=== PATIENT | male | born 1950 | race African-American/Black ===

== ENCOUNTER 2018-01-04 16:07 | Inpatient (IN) | payer OTHER ==
[2018-01-04] MEDS ORDERED: SODIUM CHLORIDE 0.9% 1000 ML INFUS.BAG IV STA (16:18)
--- NOTE | 2018-01-04 16:23 | PDOC ---
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 Patient arrives from Urgent care with findings of BL infiltrates on CXR, and SOB. Patient reports progressive, worsening shortness of breath, and Victoria x 2 weeks, with stable non productive cough within past week. Also endorses decreased appetite and possible weight loss. No home O2 requirements, or home duoneb therapy. Does not recall HIV status. States that all his HIV medications were stopped years ago for unknown reason. Does not recall CD4 count. Denies h/o TB. Patient denies night sweats, orthopnea, PND, leg pain/swelling, palpitations, N/ V, F,C, CP, urinary complaints, abdominal pain, diarrhea, constipation, BPR, lightheadedness, weakness, sensory changes. PMHx: as noted above. Denies h/o PE/DVT, PNA, ICU admission, ROS: as noted SHx: Denies h/o tobacco use, or IVDA. Social Etoh. No recent sick contacts or travels. PMD: None Past History - Past Medical History Allergies/Adverse Reactions: Allergies Allergy/AdvReac Type Severity Reaction Status Date / Time aspirin Allergy Verified 01/04/18 16:08 Sulfa (Sulfonamide Allergy Verified 01/04/18 16:08 Antibiotics) ANTI MALARIA Allergy Uncoded 01/04/18 16:08 Home Medications: Ambulatory Orders NK [No Known Home Medication] 05/20/15 COPD: No DVT: No Dementia: No - Surgical History Abdominal Surgery: Yes (hernia) - Suicide/Smoking/Psychosocial Hx Smoking History: Never smoked Have you smoked in the past 12 months: No Hx Alcohol Use: Yes Drug/Substance Use Hx: Yes Substance Use Type: Alcohol, Marijuana Review of Systems - Review of Systems Comments:: 01/04/18 16:22 GENERAL/CONSTITUTIONAL: No fever or chills. No weakness. HEAD, EYES, EARS, NOSE AND THROAT: No change in vision. No ear pain or discharge. No sore throat. CARDIOVASCULAR: + SOB and cough. No chest pain. RESPIRATORY: wheezing, or hemoptysis. GASTROINTESTINAL: No nausea, vomiting, diarrhea or constipation. GENITOURINARY: No dysuria, frequency, or change in urination. MUSCULOSKELETAL: No joint or muscle swelling or pain. No neck or back pain. SKIN: No rash NEUROLOGIC: No headache, vertigo, loss of consciousness, or change in strength/ sensation. ENDOCRINE: No increased thirst. No abnormal weight change HEMATOLOGIC/LYMPHATIC: No anemia, easy bleeding, or history of blood clots. ALLERGIC/IMMUNOLOGIC: No hives or skin allergy. *Physical Exam - Vital Signs Last Vital Signs Temp Pulse Resp BP Pulse Ox 98.1 F 121 H 24 H 144/97 82 L 01/04/18 16:08 01/04/18 16:08 01/04/18 16:08 01/04/18 16:08 01/04/18 16:08 - Physical Exam Comments: 01/04/18 16:22 GENERAL:Patient appears thin/malnourished. Awake, alert, and fully oriented, in no acute distress HEAD: No signs of trauma, normocephalic, atraumatic EYES: PERRLA, EOMI, sclera anicteric, conjunctiva clear ENT: Hearing grossly normal, nares patent, oropharynx clear without exudates. Moist mucosa NECK: Normal ROM, supple, no lymphadenopathy, JVD, or masses LUNGS: +Diminished lung sounds BL. No distress, speaks full sentences. Absent rales or rhonci. HEART: Regular rate and rhythm, normal S1 and S2, no murmurs, rubs or gallops, peripheral pulses normal and equal bilaterally. EXTREMITIES : Normal inspection, Normal range of motion, no edema. No clubbing or cyanosis. NEUROLOGICAL: Cranial nerves II through XII grossly intact. Normal speech, normal gait, no focal sensorimotor deficits SKIN: Warm, Dry, normal turgor, no rashes or lesions noted Heart Score/ECG Review - History History: Slightly suspicious - Electrocardiogram EKG: Non specific repolarization disturbance - Age Age: >/= 65 - Risk Factors Based on the list above the patient has:: No risk factors known - Troponin Troponin: </= normal limit - Score Heart Score - Total: 3 ED Treatment Course - LABORATORY CBC & Chemistry Diagram: 01/04/18 16:21 01/04/18 16:21 - RADIOLOGY Radiology Studies Ordered: Category Date Time Status CHEST X-RAY PORTABLE* [RAD] Stat Radiology 01/04/18 16:18 Ordered Medical Decision Making - Medical Decision Making 01/04/18 17:01 67 yo M with h/o G6PD, and unclear h/o HIV who p/w SOB. 2/4 SIRS criteria, HR 121, R 24, O2 82 % RA. AF. Possibility of immunocompromised status and opportunistic infections. Will assess for PNA, TB, HIV status. PERC + PE, but low risk based on weils criteria. ACS/CO r/o. Will also consider asthma, COPD, CHF. ED Course : CBC,CMP, Cardiac Pr. LA, LDH, VBG, ABG, Blood cx. Sputum Cx. Urine Cx. EKG, CXR Zosyn 4.5, Atovaquone 1500 mg 01/04/18 17:09 WBC: 5.6 Na: 126 01/04/18 17:11 CXR: BL interstitial infiltrates on preliminary read in ED 01/04/18 17:13 Trop: Neg EKG: NSR with LAD, and LVH. Absent JANIE, STD. 01/04/18 17:27 Patient to admitted to Dr. Perez Med/Surg Inpt. 01/04/18 17:[address] Andre grayson. Awaiting call back. 01/04/18 17:37 LDH: 420 *DC/Admit/Observation/Transfer Diagnosis at time of Disposition: Hypoxia, SIRS (systemic inflammatory response syndrome) Pneumonia Qualifiers: Pneumonia type: due to unspecified organism Laterality: bilateral Lung location : unspecified part of lung Qualified Code(s): J18.9 - Pneumonia, unspecified organism - Discharge Dispostion Decision to Admit order: Yes - Referrals - Patient Instructions - Post Discharge Activity
[2018-01-04 16:50] LABS: HEMATOCRIT 34.3 % (35.4-49); MCH 29.5 pg (25.7-33.7); MCHC 32.2 g/dl (32.0-35.9); MEAN CELL VOLUME 91.6 fl (80-96); MEAN PLT VOLUME 8.8 fl (7.5-11.1); PLATELET COUNT 383 K/MM3 (134-434); RBC 3.74 M/mm3 (4.00-5.60); RDW 12.4 % (11.9-15.9); WHITE BLOOD COUNT 5.6 K/mm3 (4.0-10.8)
[2018-01-04 16:57] LABS: ACTIVATED PTT 35.9 SECONDS (25.2-36.5)
[2018-01-04] MEDS ORDERED: PIPERACILLIN/TAZOB 4.5 GM 4.5 GM in DEXTROSE 5%-WATER 100 ML IVPB ONE (16:57)
[2018-01-04 17:00] LABS: ALBUMIN 2.6 g/dl (3.5-5.0); ALK PHOS 62 U/L (32-92); ANION GAP 8 MMOL/L (8-16); BILIRUBIN,TOTAL 0.7 mg/dl (0.2-1.0); BLOOD UREA NITROGEN 19 mg/dl (7-18); CALCIUM 8.5 mg/dl (8.4-10.2); CHLORIDE 94 mmol/L (98-107); CO2 24 mmol/L (22-28); CREATININE 0.9 mg/dl (0.6-1.3); GLUCOSE,RANDOM 109 mg/dl (74-106); POTASSIUM 4.4 mmol/L (3.5-5.1); SGOT/AST 50 U/L (10-42); SGPT/ALT 28 U/L (10-40); SODIUM 126 mmol/L (136-145); TOT PROT 7.4 g/dl (6.4-8.3)
[2018-01-04 17:02] LABS: INR 1.28 (0.82-1.09); PROTHROMBIN TIME (PATIENT) 14.3 SEC (10.2-13.0)
[2018-01-04] MEDS ORDERED: PIPERACILLIN/TAZOBACTAM 4.5 GM VIAL IVPB ONE (17:03)
[2018-01-04 17:39] LABS: MACROCYTOSIS 2+; PLATELET ESTIMATE SLT INCREASE
--- NOTE | 2018-01-04 17:45 | PDOC ---
Attending Attestation - Resident Resident Name: Britton Hoffmann - ED Attending Attestation I have performed the following: I have examined & evaluated the patient, The case was reviewed & discussed with the resident, I agree w/resident's findings & plan, Exceptions are as noted - HPI HPI: 01/04/18 17:44 Agree with residents HPI - Physicial Exam PE: 01/04/18 17:44 Agree with resident PE - Medical Decision Making 01/04/18 17:43 Chief complaint: Cough shortness of breath History of present illness: 67 years old G6 PD deficiency history of HIV but not undergoing any treatment presents to the emergency department 2 week history of progressively worsening cough shortness of breath dyspnea on exertion. Cough is nonproductive. Patient also endorses decreased appetite and weight loss for the last 2 weeks. Denies night sweats previous history of TB or nocturnal fevers Symptoms are moderate progressive persistent concent no alleviating factors. Was seen in urgent care today with bilateral infiltrates on chest x-ray and sent to the ED for further management. Chest x-ray performed in the emergency department concerning for PCP pneumonia. Given G6 PD deficiency patient unable to take Bactrim Given tachycardia and tachypnea sepsis order set placed. IV fluids given. Patient ordered Zosyn for broad-spectrum anabiotic coverage as well as atovaquone for PCP coverage We'll admit to medicine for further management. Heart Score/ECG Review - ECG Impressions Comment:: 01/04/18 17:44 EKG performed at 1335 demonstrates normal sinus rhythm [address] elevations or T-wave inversions. Interpreted by me.
[2018-01-04 17:55] LABS: ARTERIAL BLD GAS O2 SATURATION 86.3 % (90-98.9); ARTERIAL BLOOD GAS BASE EXCESS -0.4 meq/l (-2-2); ARTERIAL BLOOD GAS PCO2 33.1 mmHg (35-45); ARTERIAL BLOOD GAS PO2 52.7 mmHg (80-100); ARTERIAL BLOOD GAS pH 7.45 (7.35-7.45)
[2018-01-04 17:58] LABS: VENOUS PC02 44.7 mmHg (38-52); VENOUS PH 7.38 (7.32-7.42)
[2018-01-04 18:12] LABS: VENOUS PO2 14.5 mmHg (28-48)
[2018-01-04 18:16] LABS: CARBOXYHEMOGLOBIN 1.5 gm% (0.5-2.0)
[2018-01-04 19:06] LABS: URINE APPEARANCE Cloudy; URINE BILIRUBIN Negative (NEGATIVE); URINE COLOR Dark; URINE GLUCOSE (UA) Negative (NEGATIVE); URINE KETONE Negative (NEGATIVE); URINE LEUK ESTERASE 1+ (NEGATIVE); URINE NITRITE Negative (NEGATIVE); URINE PROTEIN 1+ (NEGATIVE); URINE UROBILINOGEN 0.2 (0.2-1.0)
[2018-01-04 19:20] LABS: URINE BACTERIA MANY /hpf (NEGATIVE); URINE RBC 0-2 /hpf (0-3); URINE WBC 20-40 (0-2)
--- NOTE | 2018-01-04 20:50 | PN ---
Teaching Attending Note Name of Resident: Nargis Eric ATTENDING PHYSICIAN STATEMENT I saw and evaluated the patient. I reviewed the resident's note and discussed the case with the resident. I agree with the resident's findings and plan as documented. SUBJECTIVE: 67 y/o M presenting for SOB and with history significant for G6PD deficiency, HIV with CD4 count unknow and not of HAART. 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 OBJECTIVE: GEN: Cachetic, A&Ox2 HEENT: NC, AT PERRL, EOMI, Oral mucosa moist CVS: RRR, S1, S2 Lungs: CTA, bibasilar crackles Abd: soft, NT, ND BS+, no organimegaly Ext: nl pulses, no edema CBCD WBC 5.6 K/mm3 (4.0-10.8) 01/04/18 16:21 RBC 3.74 M/mm3 (4.00-5.60) L 01/04/18 16:21 Hgb 11.0 GM/dl (11.7-16.9) L 01/04/18 16:21 Hct 34.3 % (35.4-49) L 01/04/18 16:21 MCV 91.6 fl (80-96) 01/04/18 16:21 MCHC 32.2 g/dl (32.0-35.9) 01/04/18 16:21 RDW 12.4 % (11.9-15.9) 01/04/18 16:21 Plt Count 383 K/MM3 (134-434) 01/04/18 16:21 MPV 8.8 fl (7.5-11.1) 01/04/18 16:21 CMP Sodium 126 mmol/L (136-145) L 01/04/18 16:21 Potassium 4.4 mmol/L (3.5-5.1) 01/04/18 16:21 Chloride 94 mmol/L (98-107) L 01/04/18 16:21 Carbon Dioxide 24 mmol/L (22-28) 01/04/18 16:21 Anion Gap 8 MMOL/L (8-16) 01/04/18 16:21 BUN 19 mg/dl (7-18) H 01/04/18 16:21 Creatinine 0.9 mg/dl (0.6-1.3) 01/04/18 16:21 Creat Clearance w eGFR > 60 (>60) 01/04/18 16:21 Random Glucose 109 mg/dl (74-106) H 01/04/18 16:21 Calcium 8.5 mg/dl (8.4-10.2) 01/04/18 16:21 Total Bilirubin 0.7 mg/dl (0.2-1.0) 01/04/18 16:21 AST 50 U/L (10-42) H 01/04/18 16:21 ALT 28 U/L (10-40) 01/04/18 16:21 Alkaline Phosphatase 62 U/L (32-92) 01/04/18 16:21 Total Protein 7.4 g/dl (6.4-8.3) 01/04/18 16:21 Albumin 2.6 g/dl (3.5-5.0) L 01/04/18 16:21 CARDIAC ENZYMES Creatine Kinase 120 IU/L (26-308) 01/04/18 16:21 Troponin I < 0.03 ng/ml (0.00-0.06) 01/04/18 16:21 ASSESSMENT AND PLAN: Sepsis d/t PNA r/o PCP Zosyn and Atavaquone PRednisone NEbs Tylenol prn for fever Avoid G6PD related medications ID consult HIV CD4 count Weight loss- possibly wasting syndrome Malnutrition moderate- Nutrition consult MEgace TID DVT prophylaxis
[2018-01-04] MEDS ORDERED: ATOVAQUONE 750 MG/5 ML (UNIT-DOSE PACKAGING) PO ONE (23:15)
[2018-01-05 00:13] VITALS: BMI 14.5
[2018-01-05] MEDS ORDERED: PIPERACILLIN/TAZOBACTAM 4.5 GM VIAL IVPB ONE ×3 (01:52→10:09)
[2018-01-05] MEDS ORDERED: DEXTROSE 5%-WATER 200 ML IVPB ONE (01:52)
--- NOTE | 2018-01-05 02:11 | HP ---
CHIEF COMPLAINT: shortness of breath, dyspnea on minimal exertion PCP: none HISTORY OF PRESENT ILLNESS: 67M w/ pmhx of G6PD def and hx of HIV (was formerly on meds, but was discontinued for unclear reason) presented with 2 week hx of shortness of breath with nonproductive cough. He also admits to dyspnea on minimal exertion when just standing. Additionally over the past 2 weeks, he reports decreased appetite and unintentional weight loss from 145 lbs to 110 lbs. 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 Prior to coming to the hospital, pt reports being seen at Urgent Care with recommendation to proceed to the ED for further evaluation of pneumonia. Of note, he states that he was previously on HIV medication, but was told by his doctor (name unknown) that he no longer needed to take the meds as he "did not have HIV". He also denies h/o TB. ER course was notable for: (1) CXR showed b/l infiltrates, Na 126 (2) Zosyn 4.5 gm given, Atovaquone 1,500 mg given, (3) Recent Travel: denies PAST MEDICAL HISTORY: As per HPI PAST SURGICAL HISTORY: ventral hernia repair at age 19 Social History: Smoking: denies Alcohol: socially, 2 drinks Drugs: used to smoke marijuana Family History: Father: pancreatic cx, hx of alcohol abuse Mother: anemia Daughter: Down syndrome Allergies aspirin Allergy (Verified 01/04/18 16:08) Sulfa (Sulfonamide Antibiotics) Allergy (Verified 01/04/18 16:08) ANTI MALARIA Allergy (Uncoded 01/04/18 16:08) HOME MEDICATIONS: Home Medications Medication Instructions Recorded NK [No Known Home Medication] 05/20/15 REVIEW OF SYSTEMS CONSTITUTIONAL: +loss of appetite, unintentional weight loss Absent: fever, chills, diaphoresis, generalized weakness, malaise HEENT: Absent: rhinorrhea, nasal congestion, throat pain, throat swelling, difficulty swallowing, mouth swelling, ear pain, eye pain, visual changes CARDIOVASCULAR: Absent: chest pain, syncope, palpitations, irregular heart rate, lightheadedness , peripheral edema RESPIRATORY: +cough, shortness of breath, dyspnea with exertion Absent: orthopnea, wheezing, stridor, hemoptysis GASTROINTESTINAL: Absent: abdominal pain, abdominal distension, nausea, vomiting, diarrhea, constipation, melena, hematochezia GENITOURINARY: Absent: dysuria, frequency, urgency, hesitancy, hematuria, flank pain, genital pain MUSCULOSKELETAL: Absent: myalgia, arthralgia, joint swelling, back pain, neck pain SKIN: +multiple scabs in b/l pre-tibial region Absent: rash, itching, pallor HEMATOLOGIC/IMMUNOLOGIC: Absent: easy bleeding, easy bruising, lymphadenopathy, frequent infections ENDOCRINE: +unexplained weight loss Absent: unexplained weight gain, heat intolerance, cold intolerance NEUROLOGIC: Absent: headache, focal weakness or paresthesias, dizziness, unsteady gait, seizure, mental status changes, bladder or bowel incontinence PSYCHIATRIC: Absent: anxiety, depression, suicidal or homicidal ideation, hallucinations. PHYSICAL EXAMINATION Vital Signs - 24 hr 01/04/18 01/04/18 01/04/18 16:08 16:18 17:21 Temperature 98.1 F 99.8 F H Pulse Rate 121 H Pulse Rate [ 83 Apical] Respiratory 24 H 20 Rate Blood Pressure 144/97 Blood Pressure [Left Arm] O2 Sat by Pulse 82 L 99 Oximetry (%) 01/04/18 01/04/18 01/04/18 17:52 19:00 21:50 Temperature 98.1 F 98.1 F 99.2 F Pulse Rate 200 H Pulse Rate [ 87 93 H Apical] Respiratory 20 22 H 20 Rate Blood Pressure 122/83 Blood Pressure 127/95 138/92 [Left Arm] O2 Sat by Pulse 100 93 L Oximetry (%) 01/04/18 23:53 Temperature 99.2 F Pulse Rate 200 H Pulse Rate [ Apical] Respiratory 20 Rate Blood Pressure 122/83 Blood Pressure [Left Arm] O2 Sat by Pulse 93 L Oximetry (%) GENERAL: AAOx3. NAD. Frail-appearing. Cachectic. HEAD: No signs of trauma. Temporal wasting. Prominent zygomatic arches. EYES: EOMI. RUBY. Pale conjunctiva. EARS, NOSE, THROAT: Dry mucus membranes. NECK: Normal range of motion, supple without lymphadenopathy, JVD, or masses. LUNGS: Breath sounds equal, clear to auscultation bilaterally. No wheezes, and no crackles. No accessory muscle use. CHEST: Prominent ribs HEART: Tachycardic, normal S1 and S2 without murmur, rub or gallop. ABDOMEN: Thin. Soft, nontender, not distended, normoactive bowel sounds, no guarding, no rebound, no masses. No hepatomegaly or splenomegaly. MUSCULOSKELETAL: Normal range of motion at all joints. No bony deformities or tenderness. No CVA tenderness. UPPER EXTREMITIES: 2+ pulses, warm, well-perfused. No cyanosis. No clubbing. No peripheral edema. LOWER EXTREMITIES: 2+ pulses, warm, well-perfused. No calf tenderness. No peripheral edema. NEUROLOGICAL: Cranial nerves II-XII intact. Normal speech. Gait not observed. PSYCHIATRIC: Cooperative. Good eye contact. Appropriate mood and affect. SKIN: Warm, dry, normal capillary refill. Multiple scabs seen on b/l lower legs anteriorly. Laboratory Results - last 24 hr 01/04/18 01/04/18 01/04/18 16:21 16:21 16:21 WBC 5.6 RBC 3.74 L Hgb 11.0 L Hct 34.3 L MCV 91.6 MCH 29.5 MCHC 32.2 RDW 12.4 Plt Count 383 MPV 8.8 Absolute Neuts (auto) 4.4 Neutrophils % No Result Required. Neutrophils % (Manual) 96.0 H* Band Neutrophils % 2.0 Lymphocytes % No Result Required. Lymphocytes % (Manual) 2.0 L Hypochromia 1+ Platelet Estimate Slt increase Macrocytosis 2+ PT with INR 14.3 H INR 1.28 H PTT (Actin FS) 35.9 Anticoagulation Therapy Puncture Site ABG pH ABG pCO2 at Pt Temp ABG pO2 at Pt Temp ABG HCO3 ABG O2 Sat (Measured) ABG O2 Content ABG Base Excess Jamin Test VBG pH 7.38 POC VBG pCO2 44.7 POC VBG pO2 14.5 L* Mixed VBG HCO3 26.1 H Carboxyhemoglobin Methemoglobin O2 Delivery Device Oxygen Flow Rate Vent Mode Vent Rate Mechanical Rate Pressure Support Vent Sodium Potassium Chloride Carbon Dioxide Anion Gap BUN Creatinine Creat Clearance w eGFR Random Glucose Lactic Acid Calcium Total Bilirubin AST ALT Alkaline Phosphatase LD Total Creatine Kinase Troponin I B-Natriuretic Peptide Total Protein Albumin Urine Color Urine Appearance Urine pH Ur Specific [place] Urine Protein Urine Glucose (UA) Urine Ketones Urine Blood Urine Nitrite Urine Bilirubin Urine Urobilinogen Ur Leukocyte Esterase Urine RBC Urine WBC Urine Bacteria 01/04/18 01/04/18 01/04/18 16:21 16:21 16:21 WBC RBC Hgb Hct MCV MCH MCHC RDW Plt Count MPV Absolute Neuts (auto) Neutrophils % Neutrophils % (Manual) Band Neutrophils % Lymphocytes % Lymphocytes % (Manual) Hypochromia Platelet Estimate Macrocytosis PT with INR INR PTT (Actin FS) Anticoagulation Therapy Puncture Site ABG pH ABG pCO2 at Pt Temp ABG pO2 at Pt Temp ABG HCO3 ABG O2 Sat (Measured) ABG O2 Content ABG Base Excess Jamin Test VBG pH POC VBG pCO2 POC VBG pO2 Mixed VBG HCO3 Carboxyhemoglobin Methemoglobin O2 Delivery Device Oxygen Flow Rate Vent Mode Vent Rate Mechanical Rate Pressure Support Vent Sodium 126 L Potassium 4.4 Chloride 94 L Carbon Dioxide 24 Anion Gap 8 BUN 19 H Creatinine 0.9 Creat Clearance w eGFR > 60 Random Glucose 109 H Lactic Acid 2.1 H Calcium 8.5 Total Bilirubin 0.7 AST 50 H ALT 28 Alkaline Phosphatase 62 LD Total Creatine Kinase Troponin I < 0.03 B-Natriuretic Peptide Total Protein 7.4 Albumin 2.6 L Urine Color Urine Appearance Urine pH Ur Specific [place] Urine Protein Urine Glucose (UA) Urine Ketones Urine Blood Urine Nitrite Urine Bilirubin Urine Urobilinogen Ur Leukocyte Esterase Urine RBC Urine WBC Urine Bacteria 01/04/18 01/04/18 01/04/18 16:21 16:21 16:37 WBC RBC Hgb Hct MCV MCH MCHC RDW Plt Count MPV Absolute Neuts (auto) Neutrophils % Neutrophils % (Manual) Band Neutrophils % Lymphocytes % Lymphocytes % (Manual) Hypochromia Platelet Estimate Macrocytosis PT with INR INR PTT (Actin FS) Anticoagulation Therapy Puncture Site ABG pH ABG pCO2 at Pt Temp ABG pO2 at Pt Temp ABG HCO3 ABG O2 Sat (Measured) ABG O2 Content ABG Base Excess Jamin Test VBG pH POC VBG pCO2 POC VBG pO2 Mixed VBG HCO3 Carboxyhemoglobin Methemoglobin O2 Delivery Device Oxygen Flow Rate Vent Mode Vent Rate Mechanical Rate Pressure Support Vent Sodium Potassium Chloride Carbon Dioxide Anion Gap BUN Creatinine Creat Clearance w eGFR Random Glucose Lactic Acid 1.5 Calcium Total Bilirubin AST ALT Alkaline Phosphatase LD Total Creatine Kinase 120 Troponin I B-Natriuretic Peptide 46.7 Total Protein Albumin Urine Color Urine Appearance Urine pH Ur Specific [place] Urine Protein Urine Glucose (UA) Urine Ketones Urine Blood Urine Nitrite Urine Bilirubin Urine Urobilinogen Ur Leukocyte Esterase Urine RBC Urine WBC Urine Bacteria 01/04/18 01/04/18 01/04/18 16:53 16:55 16:55 WBC RBC Hgb Hct MCV MCH MCHC RDW Plt Count MPV Absolute Neuts (auto) Neutrophils % Neutrophils % (Manual) Band Neutrophils % Lymphocytes % Lymphocytes % (Manual) Hypochromia Platelet Estimate Macrocytosis PT with INR INR PTT (Actin FS) Anticoagulation Therapy No Result Required. Puncture Site No Result Required. ABG pH 7.45 ABG pCO2 at Pt Temp 33.1 L ABG pO2 at Pt Temp 52.7 L ABG HCO3 22.7 ABG O2 Sat (Measured) 86.3 L ABG O2 Content 12.7 L ABG Base Excess -0.4 Jamin Test No Result Required. VBG pH POC VBG pCO2 POC VBG pO2 Mixed VBG HCO3 Carboxyhemoglobin 1.5 Methemoglobin 1.7 H O2 Delivery Device No Result Required. Oxygen Flow Rate No Result Required. Vent Mode No Result Required. Vent Rate No Result Required. Mechanical Rate No Result Required. Pressure Support Vent No Result Required. Sodium Potassium Chloride Carbon Dioxide Anion Gap BUN Creatinine Creat Clearance w eGFR Random Glucose Lactic Acid Calcium Total Bilirubin AST ALT Alkaline Phosphatase LD Total 420 H Creatine Kinase Troponin I B-Natriuretic Peptide Total Protein Albumin Urine Color Urine Appearance Urine pH Ur Specific [place] Urine Protein Urine Glucose (UA) Urine Ketones Urine Blood Urine Nitrite Urine Bilirubin Urine Urobilinogen Ur Leukocyte Esterase Urine RBC Urine WBC Urine Bacteria 01/04/18 18:58 WBC RBC Hgb Hct MCV MCH MCHC RDW Plt Count MPV Absolute Neuts (auto) Neutrophils % Neutrophils % (Manual) Band Neutrophils % Lymphocytes % Lymphocytes % (Manual) Hypochromia Platelet Estimate Macrocytosis PT with INR INR PTT (Actin FS) Anticoagulation Therapy Puncture Site ABG pH ABG pCO2 at Pt Temp ABG pO2 at Pt Temp ABG HCO3 ABG O2 Sat (Measured) ABG O2 Content ABG Base Excess Jamin Test VBG pH POC VBG pCO2 POC VBG pO2 Mixed VBG HCO3 Carboxyhemoglobin Methemoglobin O2 Delivery Device Oxygen Flow Rate Vent Mode Vent Rate Mechanical Rate Pressure Support Vent Sodium Potassium Chloride Carbon Dioxide Anion Gap BUN Creatinine Creat Clearance w eGFR Random Glucose Lactic Acid Calcium Total Bilirubin AST ALT Alkaline Phosphatase LD Total Creatine Kinase Troponin I B-Natriuretic Peptide Total Protein Albumin Urine Color Dark Urine Appearance Cloudy Urine pH 6.0 Ur Specific [place] 1.015 Urine Protein 1+ H Urine Glucose (UA) Negative Urine Ketones Negative Urine Blood Trace-lysed H Urine Nitrite Negative Urine Bilirubin Negative Urine Urobilinogen 0.2 Ur Leukocyte Esterase 1+ H Urine RBC 0-2 Urine WBC 20-40 Urine Bacteria Many ASSESSMENT/PLAN: 67M w/ pmhx of G6PD def and hx of HIV (was formerly on meds, but was discontinued for unclear reason) presented with 2 week hx of shortness of breath with nonproductive cough admitted for sepsis 2/2 pneumonia. #Sepsis 2/2 pneumonia; Pt meets criteria for sepsis due to initial presentation of tachypnea and tachycardia with pulmonary source of infection seen on CXR of b /l infiltrates. -cont Zosyn 4.5 gm IV -cont Atovaquone 1,500 mg PO QD; Due to pt's hx of HIV, there is a concern for PCP PNA, but pt is not able to take Bactrim due to G6PD def and was subsequently treated with Atovaquone. -ID consult -Prednisone 40 mg PO BID given; Corticosteroid use w/ anti-PCP pna therapy is known to decrease incidence of mortality and respiratory failure. It is recommended in pneumocystis PNA pt's with pO2 on ABG < 70 mmHg. Pt's pO2 52.7. 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 -dietitian consult -Regular diet w/ Magic cup supplements -Megace 40 mg PO QD for appetite stimulant -NS @ 100 for Na repletion #Hx of HIV -f/u HIV Ab and Ag -ID consult #DVT Ppx -Lovenox 40 mg SQ QD #FEN -NS @ 100 -recheck Na in AM -Regular diet w/ magic cup supplements dispo -admit to med-surg -pt comes from home - Visit type - Emergency Visit Emergency Visit: Yes ED Registration Date: 01/04/18 Care time: The patient presented to the Emergency Department on the above date and was hospitalized for further evaluation of their emergent condition. - New Patient This patient is new to me today: Yes Date on this admission: 01/05/18 - Critical Care Critical Care patient: No Hospitalist Screening - Colonoscopy Questionnaire Colonoscopy Questionnaire: Colonoscopy Questionnaire - Patient: 50 - 75 years old and never had a screening colonoscopy: Unknown History of colon or rectal polyps, or CA: Unknown History of IBD, Crohn's disease or UC: Unknown History of abdominal radiation therapy as a child: Unknown - Relative: 1 with colon or rectal CA, or polyps at age 60 or younger: Unknown Colon or rectal CA diagnosed at age 45 or younger: Unknown Multiple relatives with colon or rectal CA: Unknown - Outcome: Screening Result: Negative Screen
[2018-01-05] MEDS: predniSONE 20 MG TABLET (UD) PO SCH ×3 (02:59→21:56)
[2018-01-05] MEDS: SODIUM CHLORIDE 1,000 ML IV SCH ×2 (03:01→16:43)
[2018-01-05] MEDS: PIPERACILLIN/TAZOB 4.5 GM 4.5 GM in DEXTROSE 5%-WATER 100 ML IVPB SCH ×2 (03:05→06:45)
[2018-01-05] MEDS ORDERED: DEXTROSE 5%-WATER 100 ML IVPB ONE (06:43)
[2018-01-05 07:58] LABS: ALBUMIN 2.2 g/dl (3.4-5.0); ALK PHOS 62 U/L (45-117); ANION GAP 6 MMOL/L (8-16); BILIRUBIN,TOTAL 0.5 mg/dL (0.2-1); BLOOD UREA NITROGEN 15 mg/dL (7-18); CHLORIDE 98 mmol/L (98-107); CO2 25 mmol/L (21-32); CREATININE 0.9 mg/dL (0.55-1.3); GLUCOSE,RANDOM 94 mg/dL (74-106); POTASSIUM 4.5 mmol/L (3.5-5.1); SGOT/AST 55 U/L (15-37); SGPT/ALT 29 U/L (13-61); SODIUM 129 mmol/L (136-145); TOT PROT 6.8 g/dl (6.4-8.2)
[2018-01-05] MEDS ORDERED: ATOVAQUONE 750 MG/5 ML (UNIT-DOSE PACKAGING) PO SCH (08:00)
[2018-01-05 09:42] LABS: BASO % 0.5 % (0-2.0); HEMOGLOBIN 11.5 GM/dL (11.7-16.9); LYMPH % 9.3 % (8-40); MCH 29.5 pg (25.7-33.7); MCHC 33.8 g/dl (32.0-35.9); MEAN CELL VOLUME 87.4 fl (80-96); MEAN PLT VOLUME 8.8 fl (7.5-11.1); NEUT % 89.2 % (42.8-82.8); PLATELET COUNT 359 K/MM3 (134-434); RDW 13.6 % (11.9-15.9); WHITE BLOOD COUNT 5.6 K/mm3 (4.0-10.0)
[2018-01-05] MEDS: ENOXAPARIN NA (PORCINE) 40 MG/0.4 ML DISP.SYRIN SQ SCH (10:19)
[2018-01-05] MEDS: MEGESTROL ACETATE 40 MG TABLET PO SCH (10:19)
[2018-01-05 10:53] LABS: ACANTHOCYTES 0; ANISOCYTOSIS 0; HELMET CELLS 0; HOWELL-JOLLY BODIES 0; MACROCYTOSIS 0; OVALOCYTE 0; PLATELET ESTIMATE NORMAL; ROULEAU 0; SICKELED CELLS 0; TARGET CELLS 0; TEAR DROP CELLS 0; TOXIC GRANULATION 0
--- NOTE | 2018-01-05 11:43 | EKG ---
Test Reason : Blood Pressure : / mmHG Vent. Rate : 092 BPM Atrial Rate : 092 BPM P-R Int : 140 ms QRS Dur : 074 ms QT Int : 350 ms P-R-T Axes : 069 -55 069 degrees QTc Int : 432 ms NORMAL SINUS RHYTHM LEFT AXIS DEVIATION SEPTAL INFARCT , AGE UNDETERMINED ABNORMAL ECG NO PREVIOUS ECGS AVAILABLE Confirmed by SASKIA HATHAWAY MD ([id number]) on 01/05/2018 11:43:28 AM Referred By: DR CARRION Confirmed By:SASKIA HATHAWAY MD
[2018-01-05] MEDS ORDERED: PT OWN MED DRAWER 7, Y5N ONE ×3 (14:23→18:36)
[2018-01-05] MEDS ORDERED: PIPERACILLIN/TAZOB 4.5 GM 4.5 GM in DEXTROSE 5%-WATER 100 ML IVPB SCH (15:00)
--- NOTE | 2018-01-05 16:07 | PN ---
Physical Exam: SUBJECTIVE: Patient seen and examined this AM. He states that his SOB has been worsening over the last week. He also says he has lost about 30 pounds unintentionally in the last few months. He states that he is feeling a lot better than yesterday, and that his breathing difficulties have improved. OBJECTIVE: Vital Signs Period Temp Pulse Resp BP Sys/Mirza Pulse Ox Last 24 Hr 98.1 F-99.8 F 20-200 20-24 110-144/72-97 82-100 GENERAL: A&O, no acute distress, pt cachectic on appearance HEAD: Normocephalic, atraumatic. EYES: PERRL, no scleral icterus EARS, NOSE, THROAT: oropharynx clear without exudates. Moist mucous membranes. NECK: supple without lymphadenopathy LUNGS: Fine rales noted moreso on the left HEART: Regular rate and rhythm, normal S1 and S2 without murmur ABDOMEN: Soft, nontender to palpation, normoactive bowel sounds MUSCULOSKELETAL: No bony deformities or tenderness. EXTREMITIES: 2+ pulses, warm, well-perfused. No peripheral edema. NEUROLOGICAL: Cranial nerves II-XII grossly intact. Normal speech. PSYCHIATRIC: Cooperative. Good eye contact. Appropriate mood and affect. Laboratory Results - last 24 hr 01/04/18 01/04/18 01/04/18 16:21 16:21 16:21 WBC 5.6 RBC 3.74 L Hgb 11.0 L Hct 34.3 L MCV 91.6 MCH 29.5 MCHC 32.2 RDW 12.4 Plt Count 383 MPV 8.8 Absolute Neuts (auto) 4.4 Neutrophils % No Result Required. Neutrophils % (Manual) 96.0 H* Band Neutrophils % 2.0 Lymphocytes % No Result Required. Lymphocytes % (Manual) 2.0 L Monocytes % Monocytes % (Manual) Eosinophils % Eosinophils % (Manual) Basophils % Basophils % (Manual) Myelocytes % (Man) Promyelocytes % (Man) Blast Cells % (Manual) Nucleated RBC % Metamyelocytes Hypochromia 1+ Toxic Granulation Dohle Bodies Platelet Estimate Slt increase Polychromasia Poikilocytosis Basophilic Stippling Anisocytosis Microcytosis Macrocytosis 2+ Spherocytes Sickle Cells Target Cells Tear Drop Cells Ovalocytes Stomatocytes Helmet Cells [employer] Bodies [place] Rings [place] Cells Acanthocytes (Spur) Rouleaux Fragmented RBCs Schistocytes PT with INR 14.3 H INR 1.28 H PTT (Actin FS) 35.9 Anticoagulation Therapy Puncture Site ABG pH ABG pCO2 at Pt Temp ABG pO2 at Pt Temp ABG HCO3 ABG O2 Sat (Measured) ABG O2 Content ABG Base Excess Jamin Test VBG pH 7.38 POC VBG pCO2 44.7 POC VBG pO2 14.5 L* Mixed VBG HCO3 26.1 H Carboxyhemoglobin Methemoglobin O2 Delivery Device Oxygen Flow Rate Vent Mode Vent Rate Mechanical Rate Pressure Support Vent Sodium Potassium Chloride Carbon Dioxide Anion Gap BUN Creatinine Creat Clearance w eGFR Random Glucose Lactic Acid Calcium Total Bilirubin AST ALT Alkaline Phosphatase LD Total Creatine Kinase Troponin I B-Natriuretic Peptide Total Protein Albumin Urine Color Urine Appearance Urine pH Ur Specific [place] Urine Protein Urine Glucose (UA) Urine Ketones Urine Blood Urine Nitrite Urine Bilirubin Urine Urobilinogen Ur Leukocyte Esterase Urine RBC Urine WBC Urine Bacteria HIV 1&2 Antibody Screen HIV P24 Antigen 01/04/18 01/04/18 01/04/18 16:21 16:21 16:21 WBC RBC Hgb Hct MCV MCH MCHC RDW Plt Count MPV Absolute Neuts (auto) Neutrophils % Neutrophils % (Manual) Band Neutrophils % Lymphocytes % Lymphocytes % (Manual) Monocytes % Monocytes % (Manual) Eosinophils % Eosinophils % (Manual) Basophils % Basophils % (Manual) Myelocytes % (Man) Promyelocytes % (Man) Blast Cells % (Manual) Nucleated RBC % Metamyelocytes Hypochromia Toxic Granulation Dohle Bodies Platelet Estimate Polychromasia Poikilocytosis Basophilic Stippling Anisocytosis Microcytosis Macrocytosis Spherocytes Sickle Cells Target Cells Tear Drop Cells Ovalocytes Stomatocytes Helmet Cells [employer] Bodies [place] Rings [place] Cells Acanthocytes (Spur) Rouleaux Fragmented RBCs Schistocytes PT with INR INR PTT (Actin FS) Anticoagulation Therapy Puncture Site ABG pH ABG pCO2 at Pt Temp ABG pO2 at Pt Temp ABG HCO3 ABG O2 Sat (Measured) ABG O2 Content ABG Base Excess Jamin Test VBG pH POC VBG pCO2 POC VBG pO2 Mixed VBG HCO3 Carboxyhemoglobin Methemoglobin O2 Delivery Device Oxygen Flow Rate Vent Mode Vent Rate Mechanical Rate Pressure Support Vent Sodium 126 L Potassium 4.4 Chloride 94 L Carbon Dioxide 24 Anion Gap 8 BUN 19 H Creatinine 0.9 Creat Clearance w eGFR > 60 Random Glucose 109 H Lactic Acid 2.1 H Calcium 8.5 Total Bilirubin 0.7 AST 50 H ALT 28 Alkaline Phosphatase 62 LD Total Creatine Kinase Troponin I < 0.03 B-Natriuretic Peptide Total Protein 7.4 Albumin 2.6 L Urine Color Urine Appearance Urine pH Ur Specific [place] Urine Protein Urine Glucose (UA) Urine Ketones Urine Blood Urine Nitrite Urine Bilirubin Urine Urobilinogen Ur Leukocyte Esterase Urine RBC Urine WBC Urine Bacteria HIV 1&2 Antibody Screen HIV P24 Antigen 01/04/18 01/04/18 01/04/18 16:21 16:21 16:25 WBC RBC Hgb Hct MCV MCH MCHC RDW Plt Count MPV Absolute Neuts (auto) Neutrophils % Neutrophils % (Manual) Band Neutrophils % Lymphocytes % Lymphocytes % (Manual) Monocytes % Monocytes % (Manual) Eosinophils % Eosinophils % (Manual) Basophils % Basophils % (Manual) Myelocytes % (Man) Promyelocytes % (Man) Blast Cells % (Manual) Nucleated RBC % Metamyelocytes Hypochromia Toxic Granulation Dohle Bodies Platelet Estimate Polychromasia Poikilocytosis Basophilic Stippling Anisocytosis Microcytosis Macrocytosis Spherocytes Sickle Cells Target Cells Tear Drop Cells Ovalocytes Stomatocytes Helmet Cells [employer] Bodies [place] Rings [place] Cells Acanthocytes (Spur) Rouleaux Fragmented RBCs Schistocytes PT with INR INR PTT (Actin FS) Anticoagulation Therapy Puncture Site ABG pH ABG pCO2 at Pt Temp ABG pO2 at Pt Temp ABG HCO3 ABG O2 Sat (Measured) ABG O2 Content ABG Base Excess Jamin Test VBG pH POC VBG pCO2 POC VBG pO2 Mixed VBG HCO3 Carboxyhemoglobin Methemoglobin O2 Delivery Device Oxygen Flow Rate Vent Mode Vent Rate Mechanical Rate Pressure Support Vent Sodium Potassium Chloride Carbon Dioxide Anion Gap BUN Creatinine Creat Clearance w eGFR Random Glucose Lactic Acid Calcium Total Bilirubin AST ALT Alkaline Phosphatase LD Total Creatine Kinase 120 Troponin I B-Natriuretic Peptide 46.7 Total Protein Albumin Urine Color Urine Appearance Urine pH Ur Specific [place] Urine Protein Urine Glucose (UA) Urine Ketones Urine Blood Urine Nitrite Urine Bilirubin Urine Urobilinogen Ur Leukocyte Esterase Urine RBC Urine WBC Urine Bacteria HIV 1&2 Antibody Screen Preliminary positive HIV P24 Antigen Negative 01/04/18 01/04/18 01/04/18 16:37 16:53 16:55 WBC RBC Hgb Hct MCV MCH MCHC RDW Plt Count MPV Absolute Neuts (auto) Neutrophils % Neutrophils % (Manual) Band Neutrophils % Lymphocytes % Lymphocytes % (Manual) Monocytes % Monocytes % (Manual) Eosinophils % Eosinophils % (Manual) Basophils % Basophils % (Manual) Myelocytes % (Man) Promyelocytes % (Man) Blast Cells % (Manual) Nucleated RBC % Metamyelocytes Hypochromia Toxic Granulation Dohle Bodies Platelet Estimate Polychromasia Poikilocytosis Basophilic Stippling Anisocytosis Microcytosis Macrocytosis Spherocytes Sickle Cells Target Cells Tear Drop Cells Ovalocytes Stomatocytes Helmet Cells [employer] Bodies [place] Rings [place] Cells Acanthocytes (Spur) Rouleaux Fragmented RBCs Schistocytes PT with INR INR PTT (Actin FS) Anticoagulation Therapy No Result Required. Puncture Site No Result Required. ABG pH 7.45 ABG pCO2 at Pt Temp 33.1 L ABG pO2 at Pt Temp 52.7 L ABG HCO3 22.7 ABG O2 Sat (Measured) 86.3 L ABG O2 Content 12.7 L ABG Base Excess -0.4 Jamin Test No Result Required. VBG pH POC VBG pCO2 POC VBG pO2 Mixed VBG HCO3 Carboxyhemoglobin Methemoglobin O2 Delivery Device No Result Required. Oxygen Flow Rate No Result Required. Vent Mode No Result Required. Vent Rate No Result Required. Mechanical Rate No Result Required. Pressure Support Vent No Result Required. Sodium Potassium Chloride Carbon Dioxide Anion Gap BUN Creatinine Creat Clearance w eGFR Random Glucose Lactic Acid 1.5 Calcium Total Bilirubin AST ALT Alkaline Phosphatase LD Total 420 H Creatine Kinase Troponin I B-Natriuretic Peptide Total Protein Albumin Urine Color Urine Appearance Urine pH Ur Specific [place] Urine Protein Urine Glucose (UA) Urine Ketones Urine Blood Urine Nitrite Urine Bilirubin Urine Urobilinogen Ur Leukocyte Esterase Urine RBC Urine WBC Urine Bacteria HIV 1&2 Antibody Screen HIV P24 Antigen 01/04/18 01/04/18 01/05/18 16:55 18:58 06:40 WBC 5.6 RBC 3.90 L Hgb 11.5 L Hct 34.0 L MCV 87.4 MCH 29.5 MCHC 33.8 RDW 13.6 Plt Count 359 MPV 8.8 Absolute Neuts (auto) 5.0 Neutrophils % 89.2 H Neutrophils % (Manual) 91.0 H Band Neutrophils % 2.0 Lymphocytes % 9.3 Lymphocytes % (Manual) 5.0 L Monocytes % 1.0 L Monocytes % (Manual) 2 L Eosinophils % 0.0 Eosinophils % (Manual) 0.0 Basophils % 0.5 Basophils % (Manual) 0.0 Myelocytes % (Man) 0 Promyelocytes % (Man) 0 Blast Cells % (Manual) 0 Nucleated RBC % 0 Metamyelocytes 0 Hypochromia 0 Toxic Granulation 0 Dohle Bodies 0 Platelet Estimate Normal Polychromasia 0 Poikilocytosis 0 Basophilic Stippling 0 Anisocytosis 0 Microcytosis 0 Macrocytosis 0 Spherocytes 0 Sickle Cells 0 Target Cells 0 Tear Drop Cells 0 Ovalocytes 0 Stomatocytes 0 Helmet Cells 0 [employer] Bodies 0 [place] Rings 0 [place] Cells 0 Acanthocytes (Spur) 0 Rouleaux 0 Fragmented RBCs 0 Schistocytes 0 PT with INR INR PTT (Actin FS) Anticoagulation Therapy Puncture Site ABG pH ABG pCO2 at Pt Temp ABG pO2 at Pt Temp ABG HCO3 ABG O2 Sat (Measured) ABG O2 Content ABG Base Excess Jamin Test VBG pH POC VBG pCO2 POC VBG pO2 Mixed VBG HCO3 Carboxyhemoglobin 1.5 Methemoglobin 1.7 H O2 Delivery Device Oxygen Flow Rate Vent Mode Vent Rate Mechanical Rate Pressure Support Vent Sodium Potassium Chloride Carbon Dioxide Anion Gap BUN Creatinine Creat Clearance w eGFR Random Glucose Lactic Acid Calcium Total Bilirubin AST ALT Alkaline Phosphatase LD Total Creatine Kinase Troponin I B-Natriuretic Peptide Total Protein Albumin Urine Color Dark Urine Appearance Cloudy Urine pH 6.0 Ur Specific [place] 1.015 Urine Protein 1+ H Urine Glucose (UA) Negative Urine Ketones Negative Urine Blood Trace-lysed H Urine Nitrite Negative Urine Bilirubin Negative Urine Urobilinogen 0.2 Ur Leukocyte Esterase 1+ H Urine RBC 0-2 Urine WBC 20-40 Urine Bacteria Many HIV 1&2 Antibody Screen HIV P24 Antigen 01/05/18 06:40 WBC RBC Hgb Hct MCV MCH MCHC RDW Plt Count MPV Absolute Neuts (auto) Neutrophils % Neutrophils % (Manual) Band Neutrophils % Lymphocytes % Lymphocytes % (Manual) Monocytes % Monocytes % (Manual) Eosinophils % Eosinophils % (Manual) Basophils % Basophils % (Manual) Myelocytes % (Man) Promyelocytes % (Man) Blast Cells % (Manual) Nucleated RBC % Metamyelocytes Hypochromia Toxic Granulation Dohle Bodies Platelet Estimate Polychromasia Poikilocytosis Basophilic Stippling Anisocytosis Microcytosis Macrocytosis Spherocytes Sickle Cells Target Cells Tear Drop Cells Ovalocytes Stomatocytes Helmet Cells [employer] Bodies [place] Rings [place] Cells Acanthocytes (Spur) Rouleaux Fragmented RBCs Schistocytes PT with INR INR PTT (Actin FS) Anticoagulation Therapy Puncture Site ABG pH ABG pCO2 at Pt Temp ABG pO2 at Pt Temp ABG HCO3 ABG O2 Sat (Measured) ABG O2 Content ABG Base Excess Jamin Test VBG pH POC VBG pCO2 POC VBG pO2 Mixed VBG HCO3 Carboxyhemoglobin Methemoglobin O2 Delivery Device Oxygen Flow Rate Vent Mode Vent Rate Mechanical Rate Pressure Support Vent Sodium 129 L Potassium 4.5 Chloride 98 Carbon Dioxide 25 Anion Gap 6 L BUN 15 Creatinine 0.9 Creat Clearance w eGFR > 60 Random Glucose 94 Lactic Acid Calcium 8.0 L Total Bilirubin 0.5 AST 55 H ALT 29 Alkaline Phosphatase 62 LD Total Creatine Kinase Troponin I B-Natriuretic Peptide Total Protein 6.8 Albumin 2.2 L Urine Color Urine Appearance Urine pH Ur Specific [place] Urine Protein Urine Glucose (UA) Urine Ketones Urine Blood Urine Nitrite Urine Bilirubin Urine Urobilinogen Ur Leukocyte Esterase Urine RBC Urine WBC Urine Bacteria HIV 1&2 Antibody Screen HIV P24 Antigen Active Medications Generic Name Dose Route Start Last Admin Trade Name Freq PRN Reason Stop Dose Admin Atovaquone 1,500 mg 01/05/18 08:00 01/05/18 10:18 Mepron - PO 1,500 mg DAILY@0800 SHAD Administration Enoxaparin Sodium 40 mg 01/05/18 10:00 01/05/18 10:19 Lovenox - SQ 40 mg DAILY SHAD Administration Sodium Chloride 1,000 mls @ 83 mls/hr 01/05/18 00:30 01/05/18 03:01 Normal Saline - IV 83 mls/hr ASDIR SHAD Administration Piperacillin Sod/Tazobactam 100 mls @ 200 mls/hr 01/05/18 15:00 Sod 4.5 gm/ Dextrose IVPB Q6H-IV SHAD Protocol Azithromycin 500 mg/ Dextrose 250 mls @ 250 mls/hr 01/05/18 14:15 IVPB DAILY SHAD Megestrol Acetate 40 mg 01/05/18 10:00 01/05/18 10:19 Megace - PO 40 mg DAILY SHAD Administration Prednisone 40 mg 01/05/18 00:45 01/05/18 10:18 Deltasone - PO 40 mg BID SHAD Administration ASSESSMENT/PLAN: 67 yo male with PMH of G6PD def and HIV (no longer on HAART) admitted with one week of SOB and 3 months unintentional weight loss Sepsis secondary to atypical pneumonia -Pt with unclear HIV history no longer on HAART, suspicion for PCP -CXR noted with b/l interstitial infiltrate/congestion -CT noted with diffuse interstitial lung disease (acute infiltrate vs chronic damage) worse in b/l bases Awaiting official read -Pulmonology consulted -ID Consult appreciated -Atovaquone 750 mg PO BIDWM, Azithromycin 500 mg IV Daily, Ceftriaxone 1gm Daily -Prednisone 40 mg PO BID HIV -Pt states he was told years ago that he did not need to be on HAART therapy anymore -HIV screen positive, P24 negative, 4th gen pending -ID consulted as above G6PD Deficiency -Avoid G6PD interacting drugs and foods -No current signs of hemolytic crisis Severe Malnutrition -Likely secondary to untreated HIV -BMI noted 14.5 -about 25-35 lbs unintentional weight loss per patient in last few months -Bobj Developer consult ordered for nutritional recommendation DVT Prophylaxis -Lovenox 40 mg SQ Daily FEN -Fluids: NS @ 83 cc/hr -Electrolytes: Hyponatremia improving, BMP in AM -Nutrition: Regular diet Disposition Med/Surg Visit type - Emergency Visit Emergency Visit: Yes ED Registration Date: 01/04/18 Care time: The patient presented to the Emergency Department on the above date and was hospitalized for further evaluation of their emergent condition. - New Patient This patient is new to me today: Yes Date on this admission: 01/05/18 - Critical Care Critical Care patient: No
[2018-01-05] MEDS ORDERED: ATOVAQUONE 750 MG/5 ML (UNIT-DOSE PACKAGING) PO ONE (17:04)
--- NOTE | 2018-01-05 17:20 | CON.ID ---
Consult Consult Specialty:: infectious disease - Alcohol/Substance Use Hx Alcohol Use: Yes - Smoking History Smoking history: Never smoked Have you smoked in the past 12 months: No Home Medications - Allergies Allergies/Adverse Reactions: Allergies Allergy/AdvReac Type Severity Reaction Status Date / Time aspirin Allergy Verified 01/04/18 16:08 Sulfa (Sulfonamide Allergy Verified 01/04/18 16:08 Antibiotics) ANTI MALARIA Allergy Uncoded 01/04/18 16:08 - Home Medications Home Medications: Ambulatory Orders NK [No Known Home Medication] 05/20/15 Physical Exam Vital Signs: Vital Signs Temperature 98.8 F 01/05/18 14:36 Pulse Rate 94 H 01/05/18 14:36 Respiratory Rate 20 01/05/18 09:00 Blood Pressure 136/88 01/05/18 09:00 O2 Sat by Pulse Oximetry (%) 94 L 01/05/18 09:00 Labs: CBC, BMP 01/05/18 06:40
--- NOTE | 2018-01-05 17:39 | PN ---
Teaching Attending Note Name of Resident: Nino Holcomb ATTENDING PHYSICIAN STATEMENT I saw and evaluated the patient. I reviewed the resident's note and discussed the case with the resident. I agree with the resident's findings and plan as documented with exceptions below. SUBJECTIVE: Patient seen and examined. Breathing improved, overall feels better. No new complaints. OBJECTIVE: Vital Signs Period Temp Pulse Resp BP Sys/Mirza Pulse Ox Last 24 Hr 98.1 F-99.2 F 20-200 20-22 110-138/72-95 93-100 Intake & Output 01/02/18 01/03/18 01/04/18 01/05/18 23:59 23:59 23:59 23:59 Intake Total 575 Balance 575 Weight 110 lb 4 oz General: lying in bed in no acute distress, no use of acessory muscles of respiration, able to talk in full sentences, cachectic male Chest: bibasilar fine rales, positive air entry CvS;S1S2 regular Abdomen:Soft, NT, ND, positive bowel sounds extremities: no edema Active Medications Atovaquone (Mepron -) 750 mg PO BIDWM [facility] Enoxaparin Sodium (Lovenox -) 40 mg SQ DAILY [facility] Last Admin: 01/05/18 10:19 Dose: 40 mg Sodium Chloride (Normal Saline -) 1,000 mls @ 83 mls/hr IV ASDIR [facility] Last Admin: 01/05/18 16:43 Dose: 83 mls/hr Azithromycin 500 mg/ Dextrose 250 mls @ 250 mls/hr IVPB DAILY [facility] Ceftriaxone Sodium 1 gm/ (Dextrose) 50 mls @ 100 mls/hr IVPB DAILY [facility]; Protocol Megestrol Acetate (Megace -) 40 mg PO DAILY [facility] Last Admin: 01/05/18 10:19 Dose: 40 mg Prednisone (Deltasone -) 40 mg PO BID [facility] Last Admin: 01/05/18 10:18 Dose: 40 mg Laboratory Results - last 24 hr 01/04/18 01/04/18 01/04/18 16:21 16:21 16:21 WBC RBC Hgb Hct MCV MCH MCHC RDW Plt Count MPV Absolute Neuts (auto) Neutrophils % Neutrophils % (Manual) Band Neutrophils % Lymphocytes % Lymphocytes % (Manual) Monocytes % Monocytes % (Manual) Eosinophils % Eosinophils % (Manual) Basophils % Basophils % (Manual) Myelocytes % (Man) Promyelocytes % (Man) Blast Cells % (Manual) Nucleated RBC % Metamyelocytes Hypochromia Toxic Granulation Dohle Bodies Platelet Estimate Polychromasia Poikilocytosis Basophilic Stippling Anisocytosis Microcytosis Macrocytosis Spherocytes Sickle Cells Target Cells Tear Drop Cells Ovalocytes Stomatocytes Helmet Cells [place] Bodies Royal Rings Chiara Cells Acanthocytes (Spur) Rouleaux Fragmented RBCs Schistocytes Puncture Site ABG pH ABG pCO2 at Pt Temp ABG pO2 at Pt Temp ABG HCO3 ABG O2 Sat (Measured) ABG O2 Content ABG Base Excess Jamin Test VBG pH 7.38 POC VBG pCO2 44.7 POC VBG pO2 14.5 L* Mixed VBG HCO3 26.1 H Carboxyhemoglobin Methemoglobin Oxygen Flow Rate Sodium Potassium Chloride Carbon Dioxide Anion Gap BUN Creatinine Creat Clearance w eGFR Random Glucose Lactic Acid 2.1 H Calcium Total Bilirubin AST ALT Alkaline Phosphatase B-Natriuretic Peptide 46.7 Total Protein Albumin Urine Color Urine Appearance Urine pH Ur Specific [place] Urine Protein Urine Glucose (UA) Urine Ketones Urine Blood Urine Nitrite Urine Bilirubin Urine Urobilinogen Ur Leukocyte Esterase Urine RBC Urine WBC Urine Bacteria HIV 1&2 Antibody Screen HIV P24 Antigen 01/04/18 01/04/18 01/04/18 16:25 16:37 16:55 WBC RBC Hgb Hct MCV MCH MCHC RDW Plt Count MPV Absolute Neuts (auto) Neutrophils % Neutrophils % (Manual) Band Neutrophils % Lymphocytes % Lymphocytes % (Manual) Monocytes % Monocytes % (Manual) Eosinophils % Eosinophils % (Manual) Basophils % Basophils % (Manual) Myelocytes % (Man) Promyelocytes % (Man) Blast Cells % (Manual) Nucleated RBC % Metamyelocytes Hypochromia Toxic Granulation Dohle Bodies Platelet Estimate Polychromasia Poikilocytosis Basophilic Stippling Anisocytosis Microcytosis Macrocytosis Spherocytes Sickle Cells Target Cells Tear Drop Cells Ovalocytes Stomatocytes Helmet Cells [place] Bodies Royal Rings [place] Cells Acanthocytes (Spur) Rouleaux Fragmented RBCs Schistocytes Puncture Site No Result Required. ABG pH 7.45 ABG pCO2 at Pt Temp 33.1 L ABG pO2 at Pt Temp 52.7 L ABG HCO3 22.7 ABG O2 Sat (Measured) 86.3 L ABG O2 Content 12.7 L ABG Base Excess -0.4 Jamin Test No Result Required. VBG pH POC VBG pCO2 POC VBG pO2 Mixed VBG HCO3 Carboxyhemoglobin Methemoglobin Oxygen Flow Rate No Result Required. Sodium Potassium Chloride Carbon Dioxide Anion Gap BUN Creatinine Creat Clearance w eGFR Random Glucose Lactic Acid 1.5 Calcium Total Bilirubin AST ALT Alkaline Phosphatase B-Natriuretic Peptide Total Protein Albumin Urine Color Urine Appearance Urine pH Ur Specific [place] Urine Protein Urine Glucose (UA) Urine Ketones Urine Blood Urine Nitrite Urine Bilirubin Urine Urobilinogen Ur Leukocyte Esterase Urine RBC Urine WBC Urine Bacteria HIV 1&2 Antibody Screen Preliminary positive HIV P24 Antigen Negative 01/04/18 01/04/18 01/05/18 16:55 18:58 06:40 WBC 5.6 RBC 3.90 L Hgb 11.5 L Hct 34.0 L MCV 87.4 MCH 29.5 MCHC 33.8 RDW 13.6 Plt Count 359 MPV 8.8 Absolute Neuts (auto) 5.0 Neutrophils % 89.2 H Neutrophils % (Manual) 91.0 H Band Neutrophils % 2.0 Lymphocytes % 9.3 Lymphocytes % (Manual) 5.0 L Monocytes % 1.0 L Monocytes % (Manual) 2 L Eosinophils % 0.0 Eosinophils % (Manual) 0.0 Basophils % 0.5 Basophils % (Manual) 0.0 Myelocytes % (Man) 0 Promyelocytes % (Man) 0 Blast Cells % (Manual) 0 Nucleated RBC % 0 Metamyelocytes 0 Hypochromia 0 Toxic Granulation 0 Dohle Bodies 0 Platelet Estimate Normal Polychromasia 0 Poikilocytosis 0 Basophilic Stippling 0 Anisocytosis 0 Microcytosis 0 Macrocytosis 0 Spherocytes 0 Sickle Cells 0 Target Cells 0 Tear Drop Cells 0 Ovalocytes 0 Stomatocytes 0 Helmet Cells 0 [place] Bodies 0 Royal Rings 0 Chiara Cells 0 Acanthocytes (Spur) 0 Rouleaux 0 Fragmented RBCs 0 Schistocytes 0 Puncture Site ABG pH ABG pCO2 at Pt Temp ABG pO2 at Pt Temp ABG HCO3 ABG O2 Sat (Measured) ABG O2 Content ABG Base Excess Jamin Test VBG pH POC VBG pCO2 POC VBG pO2 Mixed VBG HCO3 Carboxyhemoglobin 1.5 Methemoglobin 1.7 H Oxygen Flow Rate Sodium Potassium Chloride Carbon Dioxide Anion Gap BUN Creatinine Creat Clearance w eGFR Random Glucose Lactic Acid Calcium Total Bilirubin AST ALT Alkaline Phosphatase B-Natriuretic Peptide Total Protein Albumin Urine Color Dark Urine Appearance Cloudy Urine pH 6.0 Ur Specific [place] 1.015 Urine Protein 1+ H Urine Glucose (UA) Negative Urine Ketones Negative Urine Blood Trace-lysed H Urine Nitrite Negative Urine Bilirubin Negative Urine Urobilinogen 0.2 Ur Leukocyte Esterase 1+ H Urine RBC 0-2 Urine WBC 20-40 Urine Bacteria Many HIV 1&2 Antibody Screen HIV P24 Antigen 01/05/18 06:40 WBC RBC Hgb Hct MCV MCH MCHC RDW Plt Count MPV Absolute Neuts (auto) Neutrophils % Neutrophils % (Manual) Band Neutrophils % Lymphocytes % Lymphocytes % (Manual) Monocytes % Monocytes % (Manual) Eosinophils % Eosinophils % (Manual) Basophils % Basophils % (Manual) Myelocytes % (Man) Promyelocytes % (Man) Blast Cells % (Manual) Nucleated RBC % Metamyelocytes Hypochromia Toxic Granulation Dohle Bodies Platelet Estimate Polychromasia Poikilocytosis Basophilic Stippling Anisocytosis Microcytosis Macrocytosis Spherocytes Sickle Cells Target Cells Tear Drop Cells Ovalocytes Stomatocytes Helmet Cells [place] Bodies Royal Rings Chiara Cells Acanthocytes (Spur) Rouleaux Fragmented RBCs Schistocytes Puncture Site ABG pH ABG pCO2 at Pt Temp ABG pO2 at Pt Temp ABG HCO3 ABG O2 Sat (Measured) ABG O2 Content ABG Base Excess Jamin Test VBG pH POC VBG pCO2 POC VBG pO2 Mixed VBG HCO3 Carboxyhemoglobin Methemoglobin Oxygen Flow Rate Sodium 129 L Potassium 4.5 Chloride 98 Carbon Dioxide 25 Anion Gap 6 L BUN 15 Creatinine 0.9 Creat Clearance w eGFR > 60 Random Glucose 94 Lactic Acid Calcium 8.0 L Total Bilirubin 0.5 AST 55 H ALT 29 Alkaline Phosphatase 62 B-Natriuretic Peptide Total Protein 6.8 Albumin 2.2 L Urine Color Urine Appearance Urine pH Ur Specific [place] Urine Protein Urine Glucose (UA) Urine Ketones Urine Blood Urine Nitrite Urine Bilirubin Urine Urobilinogen Ur Leukocyte Esterase Urine RBC Urine WBC Urine Bacteria HIV 1&2 Antibody Screen HIV P24 Antigen CXR noted CT chest images reviewed, scattered interstitial disease with air bronchograms, await official read Microbiology 01/04/18 16:21 Blood - Peripheral Venous Blood Culture - Preliminary NO GROWTH OBTAINED AFTER 24 HOURS, INCUBATION TO CONTINUE FOR 4 DAYS. 09/25/18 16:21 Blood - Peripheral Venous Blood Culture - Preliminary NO GROWTH OBTAINED AFTER 24 HOURS, INCUBATION TO CONTINUE FOR 4 DAYS. ASSESSMENT AND PLAN: 67 yom with PMHx of reported G6PD deficiency, HIV (not on meds reportedly for years as was taken off), comes with progressive dyspnea for 2 weeks and weakness. -Acute hypoxic respiratory distress -Suspected interstitial PNA, r/o PCP/atypical PNA -HIV not on meds -Reported G6PD deficiency -Malnutrition Plan: CT chest noted, follow up official read. ID input noted. Ceftriaxone/azithromycin/atovaquone. Prednisone given suspicion for PCP illness. Pulmonary consult. Reports sick contacts with URI like illness over last few weeks, check flu swab , but hold off on treatment as already improved. Urine pna studies, sputum cultures. IVF. Check CD4 counts. Follow up with ID for HAART treatment. Nutrition consult. DVTPPX lovenox Dispo pending clinical improvement. Plan discussed with patient in detail, all questions answered.
[2018-01-05] MEDS ORDERED: cefTRIAXone SODIUM 1 GM VIAL ONE (18:36)
[2018-01-05] MEDS ORDERED: DEXTROSE 5%-WATER - 100 ML IVPB ONE (18:36)
[2018-01-05] MEDS: AZITHROMYCIN IVPB 500 MG in DEXTROSE 5%-WATER - 250 ML IVPB SCH (18:41)
[2018-01-05] MEDS: CEFTRIAXONE 1 GM in DEXTROSE 5%-WATER - 50 ML IVPB SCH (20:02)
[2018-01-05] MEDS: MAG HYDROX/AL HYDROX/SIMETH 30 ML UNIT-DOSE CUP PO PRN (21:56)
[2018-01-05] MEDS: ATOVAQUONE 750 MG/5 ML (UNIT-DOSE PACKAGING) PO SCH (22:00)
[2018-01-06] MEDS: MAG HYDROX/AL HYDROX/SIMETH 30 ML UNIT-DOSE CUP PO PRN ×2 (04:00→12:55)
--- NOTE | 2018-01-06 08:00 | PN ---
Teaching Attending Note Name of Resident: Nino Holcomb ATTENDING PHYSICIAN STATEMENT I saw and evaluated the patient. I reviewed the resident's note and discussed the case with the resident. I agree with the resident's findings and plan as documented with exceptions below. SUBJECTIVE: Patient seen and examined. breathing with some improved. Reports urinary frequency and urgency on admission, currently resolved. Prior h/o intermittent urinary dribbling and inability to void when strains. OBJECTIVE: Vital Signs Period Temp Pulse Resp BP Sys/Mirza Pulse Ox Last 24 Hr 97.9 F-99 F 68-95 19-20 126-155/84-95 94-94 Intake & Output 01/03/18 01/04/18 01/05/18 01/06/18 23:59 23:59 23:59 23:59 Intake Total 575 Balance 575 Weight 110 lb 4 oz General: cachectic male in bed in no acute distress Chest:bibasilar fine infiltrates, no wheezing, positive air entry Abdomen: soft ,scaphoid, no suprapubic or CVA tenderness, positive bowel sounds Extremities: no edema Active Medications Al Hydroxide/Mg Hydroxide (Mylanta Oral Suspension -) 30 ml PO Q6H PRN PRN Reason: DYSPEPSIA Last Admin: 01/06/18 04:00 Dose: 30 ml Atovaquone (Mepron -) 750 mg PO BIDWM [facility] Last Admin: 01/05/18 22:00 Dose: 750 mg Enoxaparin Sodium (Lovenox -) 40 mg SQ DAILY [facility] Last Admin: 01/05/18 10:19 Dose: 40 mg Sodium Chloride (Normal Saline -) 1,000 mls @ 83 mls/hr IV ASDIR [facility] Last Admin: 01/05/18 16:43 Dose: 83 mls/hr Azithromycin 500 mg/ Dextrose 250 mls @ 250 mls/hr IVPB DAILY [facility] Last Admin: 01/05/18 18:41 Dose: 250 mls/hr Ceftriaxone Sodium 1 gm/ (Dextrose) 50 mls @ 100 mls/hr IVPB DAILY [facility]; Protocol Last Admin: 01/05/18 20:02 Dose: 100 mls/hr Megestrol Acetate (Megace -) 40 mg PO DAILY [facility] Last Admin: 01/05/18 10:19 Dose: 40 mg Prednisone (Deltasone -) 40 mg PO BID [facility] Last Admin: 01/05/18 21:56 Dose: 40 mg Microbiology 01/04/18 16:21 Blood - Peripheral Venous Blood Culture - Preliminary NO GROWTH OBTAINED AFTER 24 HOURS, INCUBATION TO CONTINUE FOR 4 DAYS. 01/04/18 16:21 Blood - Peripheral Venous Blood Culture - Preliminary NO GROWTH OBTAINED AFTER 24 HOURS, INCUBATION TO CONTINUE FOR 4 DAYS. Laboratory Results - last 24 hr 01/06/18 01/06/18 07:30 07:30 WBC 4.8 RBC 3.68 L Hgb 10.8 L Hct 32.6 L MCV 88.5 MCH 29.3 MCHC 33.1 RDW 13.7 Plt Count 367 MPV 8.8 Absolute Neuts (auto) 3.9 Neutrophils % 79.6 Lymphocytes % 13.0 D Monocytes % 6.6 D Eosinophils % 0.1 D Basophils % 0.7 Nucleated RBC % 0 Sodium 131 L Potassium 4.4 Chloride 100 Carbon Dioxide 23 Anion Gap 8 BUN 16 Creatinine 0.9 Creat Clearance w eGFR > 60 Random Glucose 120 H Calcium 8.2 L Phosphorus 3.2 Magnesium 2.3 Total Bilirubin 0.3 AST 45 H ALT 29 Alkaline Phosphatase 63 Total Protein 7.1 Albumin 2.2 L Microbiology 01/04/18 18:58 Urine - Urine Clean Catch Urine Culture - Preliminary Lactose Fermenting Neg Bacilli 01/06/18 01:52 Urine For Antigen Detection Legionella Antigen - Final 01/06/18 01:52 Urine For Antigen Detection Streptococcus pneumoniae Antigen (M - Final 01/05/18 09:13 Nasopharyngeal Swab Influenza Types A,B Antigen - Final 01/05/18 09:13 Nasopharyngeal Swab - Final 01/04/18 16:21 Blood - Peripheral Venous Blood Culture - Preliminary NO GROWTH OBTAINED AFTER 24 HOURS, INCUBATION TO CONTINUE FOR 4 DAYS. 01/04/18 16:21 Blood - Peripheral Venous Blood Culture - Preliminary NO GROWTH OBTAINED AFTER 24 HOURS, INCUBATION TO CONTINUE FOR 4 DAYS. ASSESSMENT AND PLAN: 67 yom with PMHx of reported G6PD deficiency, HIV (not on meds reportedly for years as was taken off), comes with progressive dyspnea for 2 weeks and weakness. -Acute hypoxic respiratory distress -Interstitial PNA, r/o PCP/atypical PNA -HIV not on meds, likely AIDS -Reported G6PD deficiency -Malnutrition -Lower uncomplicated gm neg UTI Plan: ID/pulmonary input noted. Ceftriaxone/azithromycin/atovaquone day 3. Induced sputum cx/cytology. Possible Bronchoscopy with BAL if no sample available. Urine PNA studies/Flu swab neg. Follow up CD4 counts. CT chest noted. Continue prednisone. nebs prn. Follow up urine cx. Renal/bladder US. Follow up with ID for HAART treatment. Nutrition consult. DVTPPX lovenox Dispo pending clinical improvement. Plan discussed with patient in detail, all questions answered.
[2018-01-06 08:27] LABS: ALBUMIN 2.2 g/dl (3.4-5.0); ALK PHOS 63 U/L (45-117); ANION GAP 8 MMOL/L (8-16); BILIRUBIN,TOTAL 0.3 mg/dL (0.2-1); BLOOD UREA NITROGEN 16 mg/dL (7-18); CALCIUM 8.2 mg/dL (8.5-10.1); CHLORIDE 100 mmol/L (98-107); CO2 23 mmol/L (21-32); CREATININE 0.9 mg/dL (0.55-1.3); GLUCOSE,RANDOM 120 mg/dL (74-106); MAGNESIUM 2.3 mg/dL (1.8-2.4); PHOSPHOROUS 3.2 mg/dL (2.5-4.9); POTASSIUM 4.4 mmol/L (3.5-5.1); SGOT/AST 45 U/L (15-37); SGPT/ALT 29 U/L (13-61); SODIUM 131 mmol/L (136-145); TOT PROT 7.1 g/dl (6.4-8.2)
[2018-01-06] MEDS ORDERED: cefTRIAXone SODIUM 1 GM VIAL ONE (09:57)
[2018-01-06] MEDS ORDERED: DEXTROSE 5%-WATER - 50 ML IVPB ONE (09:57)
--- NOTE | 2018-01-06 09:58 | PN ---
Physical Exam: SUBJECTIVE: Patient seen and examined this morning. He says he is having some cough and SOB when he goes to the bathroom. At rest he says his breathing is "better than before." He does endorse some abodminal pain with some nonbloody diarrhea. He denies any fevers, chills, nightsweats, chest pain. OBJECTIVE: Vital Signs Period Temp Pulse Resp BP Sys/Mirza Pulse Ox Last 24 Hr 97.9 F-98.8 F 68-94 19-19 126-155/84-95 94 GENERAL: A&O, no acute distress, pt cachectic on appearance HEAD: Normocephalic, atraumatic. EYES: PERRL, no scleral icterus EARS, NOSE, THROAT: oropharynx clear without exudates. Moist mucous membranes. NECK: supple without lymphadenopathy LUNGS: Fine rales noted more so on the left, HEART: Regular rate and rhythm, normal S1 and S2 without murmur ABDOMEN: Soft, concave, nontender to palpation, normoactive bowel sounds MUSCULOSKELETAL: No bony deformities or tenderness. EXTREMITIES: 2+ pulses, warm, well-perfused. No peripheral edema. NEUROLOGICAL: Cranial nerves II-XII grossly intact. Normal speech. PSYCHIATRIC: Cooperative. Good eye contact. Appropriate mood and affect. Laboratory Results - last 24 hr 01/04/18 01/05/18 01/06/18 16:25 06:40 07:30 Neutrophils % (Manual) 91.0 H Band Neutrophils % 2.0 Lymphocytes % (Manual) 5.0 L Monocytes % (Manual) 2 L Eosinophils % (Manual) 0.0 Basophils % (Manual) 0.0 Myelocytes % (Man) 0 Promyelocytes % (Man) 0 Blast Cells % (Manual) 0 Metamyelocytes 0 Hypochromia 0 Toxic Granulation 0 Dohle Bodies 0 Platelet Estimate Normal Polychromasia 0 Poikilocytosis 0 Basophilic Stippling 0 Anisocytosis 0 Microcytosis 0 Macrocytosis 0 Spherocytes 0 Sickle Cells 0 Target Cells 0 Tear Drop Cells 0 Ovalocytes 0 Stomatocytes 0 Helmet Cells 0 [place] Bodies 0 [place] Rings 0 [place] Cells 0 Acanthocytes (Spur) 0 Rouleaux 0 Fragmented RBCs 0 Schistocytes 0 Sodium 131 L Potassium 4.4 Chloride 100 Carbon Dioxide 23 Anion Gap 8 BUN 16 Creatinine 0.9 Creat Clearance w eGFR > 60 Random Glucose 120 H Calcium 8.2 L Phosphorus 3.2 Magnesium 2.3 Total Bilirubin 0.3 AST 45 H ALT 29 Alkaline Phosphatase 63 Total Protein 7.1 Albumin 2.2 L HIV 1&2 Antibody Screen Preliminary positive HIV P24 Antigen Negative Active Medications Generic Name Dose Route Start Last Admin Trade Name Freq PRN Reason Stop Dose Admin Al Hydroxide/Mg Hydroxide 30 ml 01/05/18 20:30 01/06/18 04:00 Mylanta Oral Suspension - PO 30 ml Q6H PRN Administration DYSPEPSIA Atovaquone 750 mg 01/05/18 17:30 01/05/18 22:00 Mepron - PO 750 mg BIDWM [facility] Administration Enoxaparin Sodium 40 mg 01/05/18 10:00 01/05/18 10:19 Lovenox - SQ 40 mg DAILY [facility] Administration Sodium Chloride 1,000 mls @ 83 mls/hr 01/05/18 00:30 01/05/18 16:43 Normal Saline - IV 83 mls/hr ASDIR [facility] Administration Azithromycin 500 mg/ Dextrose 250 mls @ 250 mls/hr 01/05/18 14:15 01/05/18 18 :41 IVPB 250 mls/hr DAILY [facility] Administration Ceftriaxone Sodium 1 gm/ 50 mls @ 100 mls/hr 01/05/18 17:15 01/05/18 20:02 Dextrose IVPB 100 mls/hr DAILY [facility] Administration Protocol Megestrol Acetate 40 mg 01/05/18 10:00 01/05/18 10:19 Megace - PO 40 mg DAILY [facility] Administration Prednisone 40 mg 01/05/18 00:45 01/05/18 21:56 Deltasone - PO 40 mg BID [facility] Administration ASSESSMENT/PLAN: 67 yo male with PMH of G6PD def and HIV (no longer on HAART) admitted with one week of SOB and 3 months unintentional weight loss Sepsis secondary to atypical pneumonia -Pt with unclear HIV history no longer on HAART, suspicion for PCP -CXR noted with b/l interstitial infiltrate/congestion -CT noted with diffuse interstitial lung disease (acute infiltrate vs chronic damage) worse in b/l bases Awaiting official read -Pulmonology consulted, sputum culture for cytology -ID Consult appreciated -Atovaquone 750 mg PO BIDWM, Azithromycin 500 mg IV Daily, Ceftriaxone 1gm Daily -Prednisone 40 mg PO BID HIV -Pt states he was told years ago that he did not need to be on HAART therapy anymore -HIV screen positive, P24 negative, 4th gen pending -ID consulted as above G6PD Deficiency -Avoid G6PD interacting drugs and foods -No current signs of hemolytic crisis Severe Malnutrition -Likely secondary to untreated HIV -BMI noted 14.5 -about 25-35 lbs unintentional weight loss per patient in last few months -[employer] consult ordered for nutritional recommendation Ensure Enlive TID and Ensure pudding at 8pm DVT Prophylaxis -Lovenox 40 mg SQ Daily FEN -Fluids: NS @ 83 cc/hr -Electrolytes: Hyponatremia improving, BMP in AM -Nutrition: Regular diet Disposition Med/Surg Visit type - Emergency Visit Emergency Visit: Yes ED Registration Date: 01/04/18 Care time: The patient presented to the Emergency Department on the above date and was hospitalized for further evaluation of their emergent condition. - New Patient This patient is new to me today: No - Critical Care Critical Care patient: No
[2018-01-06] MEDS: AZITHROMYCIN IVPB 500 MG in DEXTROSE 5%-WATER - 250 ML IVPB SCH (10:00)
[2018-01-06] MEDS: CEFTRIAXONE 1 GM in DEXTROSE 5%-WATER - 50 ML IVPB SCH (10:00)
[2018-01-06] MEDS: predniSONE 20 MG TABLET (UD) PO SCH ×2 (10:01→21:52)
[2018-01-06] MEDS: MEGESTROL ACETATE 40 MG TABLET PO SCH (10:01)
[2018-01-06] MEDS: ATOVAQUONE 750 MG/5 ML (UNIT-DOSE PACKAGING) PO SCH ×2 (10:01→17:41)
[2018-01-06] MEDS: ENOXAPARIN NA (PORCINE) 40 MG/0.4 ML DISP.SYRIN SQ SCH (10:01)
[2018-01-06] MEDS: SODIUM CHLORIDE 1,000 ML IV SCH (10:01)
--- NOTE | 2018-01-06 10:49 | CON.PULM ---
Consult Consult Specialty:: PULMONARY Referred by:: Dr. Anglin Reason for Consultation:: pneumonia - History of Present Illness Chief Complaint: shortness of breath History of Present Illness: 67yo male with h/o G6PD deficiency, HIV but not on meds for a "few years" unknown CD4 count or viral load who was admitted with worsening shortness of breath x 2 weeks. He denies any chest pain or discomfort. No cough or wheezing. No fevers or chills but has had a decreased appetite and unintentional weight loss. Denies history of opportunistic infections. No history of asthma or COPD. He is a never smoker. Noted to be hypoxic to 82% on room air in the ER. - History Source History Provided By: Patient, Medical Record Limitations to Obtaining History: No Limitations - Past Medical History Infectious Disease: Yes: HIV - Alcohol/Substance Use Hx Alcohol Use: Yes - Smoking History Smoking history: Never smoked Have you smoked in the past 12 months: No Home Medications - Allergies Allergies/Adverse Reactions: Allergies Allergy/AdvReac Type Severity Reaction Status Date / Time aspirin Allergy Verified 01/04/18 16:08 Sulfa (Sulfonamide Allergy Verified 01/04/18 16:08 Antibiotics) ANTI MALARIA Allergy Uncoded 01/04/18 16:08 - Home Medications Home Medications: Ambulatory Orders NK [No Known Home Medication] 05/20/15 Review of Systems - Review of Systems Constitutional: reports: Unintentional Wgt. Loss, Weakness. denies: Chills, Fever Eyes: denies: Recent Change in Vision HENT: denies: Nasal Congestion, Throat Pain Neck: denies: Stiffness, Tenderness Cardiovascular: reports: Shortness of Breath. denies: Chest Pain, Palpitations Respiratory: reports: Exercise Intolerance, SOB, SOB on Exertion. denies: Cough , Hemoptysis, Wheezing Gastrointestinal: denies: Abdominal Pain, Nausea, Vomiting Genitourinary: denies: Dysuria, Hematuria Neurological: denies: Dizziness, Headache Endocrine: reports: Unexplained Weight Loss Physical Exam Vital Sings: Vital Signs Temperature 97.9 F 01/06/18 05:30 Pulse Rate 68 01/06/18 05:30 Respiratory Rate 19 01/05/18 21:00 Blood Pressure 126/84 01/06/18 05:30 O2 Sat by Pulse Oximetry (%) 94 L 01/05/18 21:00 Constitutional: Yes: Calm, Cachectic Eyes: Yes: Conjunctiva Clear, EOM Intact HENT: Yes: Atraumatic, Normocephalic Neck: Yes: Supple, Trachea Midline Cardiovascular: Yes: Regular Rate and Rhythm Respiratory: Yes: Diminished (distant breath sounds) ...Clubbing: No Gastrointestinal: Yes: Normal Bowel Sounds, Soft. No: Tenderness Edema: No Neurological: Yes: Alert, Oriented Labs: CBC, BMP 01/06/18 07:30 ABG Results ABG pH 7.45 (7.35-7.45) 01/04/18 16:55 ABG pCO2 at Pt Temp 33.1 mmHg (35-45) L 01/04/18 16:55 ABG pO2 at Pt Temp 52.7 mmHg (80-100) L 01/04/18 16:55 ABG HCO3 22.7 meq/L (22-26) 01/04/18 16:55 ABG O2 Sat (Measured) 86.3 % (90-98.9) L 01/04/18 16:55 ABG O2 Content 12.7 % vol (15-22) L 01/04/18 16:55 ABG Base Excess -0.4 meq/l (-2-2) 01/04/18 16:55 Imaging - Results Chest X-ray: Report Reviewed, Image Reviewed (bilateral interstitial infiltrates ) Problem List - Problems (1) Pneumonia Code(s): J18.9 - PNEUMONIA, UNSPECIFIED ORGANISM Qualifiers: Pneumonia type: due to unspecified organism Laterality: bilateral Lung location: unspecified part of lung Qualified Code(s): J18.9 - Pneumonia, unspecified organism (2) Acute respiratory failure with hypoxia Code(s): J96.01 - ACUTE RESPIRATORY FAILURE WITH HYPOXIA (3) HIV (human immunodeficiency virus infection) Code(s): B20 - HUMAN IMMUNODEFICIENCY VIRUS [HIV] DISEASE Assessment/Plan Acute Hypoxic Respiratory Failure HIV likely AIDS Pneumonia suspicious for pneumocystis h/o G6PD deficiency - will order induced sputum for culture and cytology - antibiotics per ID - agree with prednisone given hypoxia - O2 to keep SPO2 >90% - if unable to obtain sputum from induction, will need bronchoscopy for BAL - DVT prophylaxis Thank you for this consult Vishnu De León MD
[2018-01-06 11:18] LABS: BASO % 0.7 % (0-2.0); EOS % 0.1 % (0-4.5); HEMATOCRIT 32.6 % (35.4-49); HEMOGLOBIN 10.8 GM/dL (11.7-16.9); MCH 29.3 pg (25.7-33.7); MCHC 33.1 g/dl (32.0-35.9); MEAN CELL VOLUME 88.5 fl (80-96); MEAN PLT VOLUME 8.8 fl (7.5-11.1); MONO % 6.6 % (3.8-10.2); NEUT % 79.6 % (42.8-82.8); PLATELET COUNT 367 K/MM3 (134-434); RBC 3.68 M/mm3 (4.00-5.60); RDW 13.7 % (11.9-15.9); WHITE BLOOD COUNT 4.8 K/mm3 (4.0-10.0)
--- NOTE | 2018-01-06 18:27 | PN ---
Progress Note (short form) - Note Progress Note: feels improved using 2 liters nc with good oxygenation Vital Signs Period Temp Pulse Resp BP Sys/Mirza Pulse Ox Last 24 Hr 97.9 F-98.0 F 68-70 20 126-138/78-84 95 cor - rrr lungs decreased bs at bases abd soft, nt ext no edema CBC, BMP 01/06/18 07:30 01/06/18 07:30 Microbiology 01/04/18 16:21 Blood - Peripheral Venous Blood Culture - Preliminary NO GROWTH OBTAINED AFTER 48 HOURS, INCUBATION TO CONTINUE FOR 3 DAYS. 01/04/18 16:21 Blood - Peripheral Venous Blood Culture - Preliminary NO GROWTH OBTAINED AFTER 48 HOURS, INCUBATION TO CONTINUE FOR 3 DAYS. 01/04/18 18:58 Urine - Urine Clean Catch Urine Culture - Preliminary Lactose Fermenting Neg Bacilli 01/06/18 01:52 Urine For Antigen Detection Legionella Antigen - Final 01/06/18 01:52 Urine For Antigen Detection Streptococcus pneumoniae Antigen (M - Final 01/05/18 09:13 Nasopharyngeal Swab Influenza Types A,B Antigen - Final 01/05/18 09:13 Nasopharyngeal Swab - Final a/p probable pcp clinically looks well continue mepron steroids if clinically worsens will start iv pentamadine stop zithromax leg antigen is negative await tcells g6pd deficiency noted
[2018-01-07] MEDS: SODIUM CHLORIDE 1,000 ML IV SCH ×2 (02:52→17:54)
[2018-01-07] MEDS ORDERED: PT OWN MED DRAWER 7, Y5N ONE ×2 (08:02→10:29)
[2018-01-07] MEDS: ATOVAQUONE 750 MG/5 ML (UNIT-DOSE PACKAGING) PO SCH (08:04)
[2018-01-07 08:11] LABS: BASO % 0.9 % (0-2.0); HEMATOCRIT 33.2 % (35.4-49); HEMOGLOBIN 11.2 GM/dL (11.7-16.9); LYMPH % 12.2 % (8-40); MCH 29.4 pg (25.7-33.7); MCHC 33.7 g/dl (32.0-35.9); MEAN CELL VOLUME 87.2 fl (80-96); MEAN PLT VOLUME 8.3 fl (7.5-11.1); MONO % 2.2 % (3.8-10.2); NEUT % 84.7 % (42.8-82.8); PLATELET COUNT 383 K/MM3 (134-434); RBC 3.81 M/mm3 (4.00-5.60); RDW 13.4 % (11.9-15.9); WHITE BLOOD COUNT 5.4 K/mm3 (4.0-10.0)
[2018-01-07 09:06] LABS: ALBUMIN 2.4 g/dl (3.4-5.0); ALK PHOS 65 U/L (45-117); ANION GAP 10 MMOL/L (8-16); BILIRUBIN,TOTAL 0.3 mg/dL (0.2-1); BLOOD UREA NITROGEN 15 mg/dL (7-18); CHLORIDE 98 mmol/L (98-107); CO2 25 mmol/L (21-32); CREATININE 0.7 mg/dL (0.55-1.3); GLUCOSE,RANDOM 92 mg/dL (74-106); POTASSIUM 4.6 mmol/L (3.5-5.1); SGOT/AST 40 U/L (15-37); SGPT/ALT 35 U/L (13-61); SODIUM 134 mmol/L (136-145); TOT PROT 7.3 g/dl (6.4-8.2)
[2018-01-07] MEDS ORDERED: cefTRIAXone SODIUM 1 GM VIAL ONE (10:30)
[2018-01-07] MEDS ORDERED: DEXTROSE 5%-WATER - 50 ML IVPB ONE (10:30)
[2018-01-07] MEDS: MEGESTROL ACETATE 40 MG TABLET PO SCH (10:31)
[2018-01-07] MEDS: predniSONE 20 MG TABLET (UD) PO SCH ×2 (10:31→21:21)
[2018-01-07] MEDS: ENOXAPARIN NA (PORCINE) 40 MG/0.4 ML DISP.SYRIN SQ SCH (10:31)
[2018-01-07] MEDS: CEFTRIAXONE 1 GM in DEXTROSE 5%-WATER - 50 ML IVPB SCH (11:35)
--- NOTE | 2018-01-07 12:44 | PN ---
Physical Exam: SUBJECTIVE: Patient seen and examined this AM. He states he is feeling "better than before." He states that he is still having some diarrhea and chills as well. OBJECTIVE: Vital Signs Period Temp Pulse Resp BP Sys/Mirza Pulse Ox Last 24 Hr 97.7 F-97.9 F 82-100 20 121-124/78-78 95 GENERAL: A&O, no acute distress, pt cachectic on appearance HEAD: Normocephalic, atraumatic. EYES: PERRL, no scleral icterus EARS, NOSE, THROAT: oropharynx clear without exudates. Moist mucous membranes. NECK: supple without lymphadenopathy LUNGS: Fine rales noted HEART: Regular rate and rhythm, normal S1 and S2 without murmur ABDOMEN: Soft, concave, nontender to palpation, normoactive bowel sounds MUSCULOSKELETAL: No bony deformities or tenderness. EXTREMITIES: 2+ pulses, warm, well-perfused. No peripheral edema. NEUROLOGICAL: Cranial nerves II-XII grossly intact. Normal speech. PSYCHIATRIC: Cooperative. Good eye contact. Appropriate mood and affect. Laboratory Results - last 24 hr 01/04/18 01/06/18 01/07/18 16:25 07:30 07:00 WBC 5.4 RBC 3.81 L Hgb 11.2 L Hct 33.2 L MCV 87.2 MCH 29.4 MCHC 33.7 RDW 13.4 Plt Count 383 MPV 8.3 Absolute Neuts (auto) 4.6 Total Counted 100 Neutrophils % 84.7 H Neutrophils % (Manual) 81.0 81.7 Band Neutrophils % 3.0 1.1 Lymphocytes % 12.2 Lymphocytes % (Manual) 11.0 D 10.8 Monocytes % 2.2 L Monocytes % (Manual) 5 D 4 Eosinophils % 0.0 D Eosinophils % (Manual) 0.0 Basophils % 0.9 Basophils % (Manual) 2.1 H D Myelocytes % (Man) 0 Promyelocytes % (Man) 0 Blast Cells % (Manual) 0 Nucleated RBC % 0 Metamyelocytes 0 Sodium Potassium Chloride Carbon Dioxide Anion Gap BUN Creatinine Creat Clearance w eGFR Random Glucose Calcium Total Bilirubin AST ALT Alkaline Phosphatase Total Protein Albumin HIV-1 Antibody Positive H HIV-2 Antibody Negative HIV 1&2 Ag/Ab, 4th Gen Reactive H HIV Note Hiv-1 positive 01/07/18 07:00 WBC RBC Hgb Hct MCV MCH MCHC RDW Plt Count MPV Absolute Neuts (auto) Total Counted Neutrophils % Neutrophils % (Manual) Band Neutrophils % Lymphocytes % Lymphocytes % (Manual) Monocytes % Monocytes % (Manual) Eosinophils % Eosinophils % (Manual) Basophils % Basophils % (Manual) Myelocytes % (Man) Promyelocytes % (Man) Blast Cells % (Manual) Nucleated RBC % Metamyelocytes Sodium 134 L Potassium 4.6 Chloride 98 Carbon Dioxide 25 Anion Gap 10 BUN 15 Creatinine 0.7 Creat Clearance w eGFR > 60 Random Glucose 92 Calcium 9.0 Total Bilirubin 0.3 AST 40 H ALT 35 Alkaline Phosphatase 65 Total Protein 7.3 Albumin 2.4 L HIV-1 Antibody HIV-2 Antibody HIV 1&2 Ag/Ab, 4th Gen HIV Note Active Medications Generic Name Dose Route Start Last Admin Trade Name Freq PRN Reason Stop Dose Admin Al Hydroxide/Mg Hydroxide 30 ml 01/05/18 20:30 01/06/18 12:55 Mylanta Oral Suspension - PO 30 ml Q6H PRN Administration DYSPEPSIA Atovaquone 750 mg 01/05/18 17:30 01/07/18 08:04 Mepron - PO 750 mg BIDWM SHAD Administration Enoxaparin Sodium 40 mg 01/05/18 10:00 01/07/18 10:31 Lovenox - SQ 40 mg DAILY SHAD Administration Sodium Chloride 1,000 mls @ 83 mls/hr 01/05/18 00:30 01/07/18 02:52 Normal Saline - IV 83 mls/hr ASDIR HSAD Administration Ceftriaxone Sodium 1 gm/ 50 mls @ 100 mls/hr 01/05/18 17:15 01/07/18 11:35 Dextrose IVPB 100 mls/hr DAILY SHAD Administration Protocol Megestrol Acetate 40 mg 01/05/18 10:00 01/07/18 10:31 Megace - PO 40 mg DAILY SHAD Administration Prednisone 40 mg 01/05/18 00:45 01/07/18 10:31 Deltasone - PO 40 mg BID SHAD Administration Tamsulosin HCl 0.4 mg 01/08/18 08:30 Flomax - PO DAILY@0830 [facility] ASSESSMENT/PLAN: 67 yo male with PMH of G6PD def and HIV (no longer on HAART) admitted with one week of SOB and 3 months unintentional weight loss Sepsis secondary to atypical pneumonia -Pt with unclear HIV history no longer on HAART, suspicion for PCP -CXR noted with b/l interstitial infiltrate/congestion -CT noted with diffuse interstitial lung disease (acute infiltrate vs chronic damage) worse in b/l bases Awaiting official read -Pulmonology consulted, sputum culture for cytology -ID Consult appreciated -Ceftriaxone 1gm Daily, Pentamidine 200 mg IV Daily, increased fluids for adequate hydration -Prednisone 40 mg PO BID Urinary retention -Post void bladder scan > 500 -One time straight cath -Rojas overnight if continued retention on bladder scan HIV -Pt states he was told years ago that he did not need to be on HAART therapy anymore -HIV screen positive, P24 negative, 4th gen pending -ID consulted as above G6PD Deficiency -Avoid G6PD interacting drugs and foods -No current signs of hemolytic crisis Severe Malnutrition -Likely secondary to untreated HIV -BMI noted 14.5 -about 25-35 lbs unintentional weight loss per patient in last few months -Measurement Coordinator consult ordered for nutritional recommendation Ensure Enlive TID and Ensure pudding at 8pm DVT Prophylaxis -Lovenox 40 mg SQ Daily FEN -Fluids: NS @ 100 cc/hr -Electrolytes: Hyponatremia improving, BMP in AM -Nutrition: Regular diet Disposition Med/Surg Visit type - Emergency Visit Emergency Visit: Yes ED Registration Date: 01/04/18 Care time: The patient presented to the Emergency Department on the above date and was hospitalized for further evaluation of their emergent condition. - New Patient This patient is new to me today: No - Critical Care Critical Care patient: No
--- NOTE | 2018-01-07 14:45 | PN ---
Progress Note (short form) - Note Progress Note: cxray unchanged still with nonproductive cough Vital Signs Period Temp Pulse Resp BP Sys/Mirza Pulse Ox Last 24 Hr 97.7 F-97.9 F 82-100 20 121-124/78-78 95 cor-rrr lungs decreased bs at bases abd soft, nt ext no edema CBC, BMP 01/07/18 07:00 01/07/18 07:00 Microbiology 01/04/18 18:58 Urine - Urine Clean Catch Urine Culture - Final Klebsiella Pneumoniae 01/04/18 16:21 Blood - Peripheral Venous Blood Culture - Preliminary NO GROWTH OBTAINED AFTER 48 HOURS, INCUBATION TO CONTINUE FOR 3 DAYS. 01/04/18 16:21 Blood - Peripheral Venous Blood Culture - Preliminary NO GROWTH OBTAINED AFTER 48 HOURS, INCUBATION TO CONTINUE FOR 3 DAYS. 01/06/18 01:52 Urine For Antigen Detection Legionella Antigen - Final 01/06/18 01:52 Urine For Antigen Detection Streptococcus pneumoniae Antigen (M - Final 01/05/18 09:13 Nasopharyngeal Swab Influenza Types A,B Antigen - Final 01/05/18 09:13 Nasopharyngeal Swab - Final cxray unchanged cr4 pending a/p probable pcp-given degree of disease of disease on cxray and hypoxia will start pentamadine 200 mg daily- 4mg/kg, keep well hydrated continue prednisone await tcells g6pd deficiency noted
[2018-01-07] MEDS ORDERED: [UNRECOGNIZED DRUG - OTHER] IVPB SCH (15:00)
[2018-01-07] MEDS ORDERED: DEXTROSE 5% IH SCH (15:15)
[2018-01-07] MEDS ORDERED: WATER IH SCH (15:15)
[2018-01-07] MEDS ORDERED: PENTAMIDINE ISETHIONATE IH SCH (15:15)
[2018-01-07] MEDS ORDERED: DEXTROSE 5% IVPB SCH (15:22)
[2018-01-07] MEDS ORDERED: WATER IVPB SCH (15:22)
[2018-01-07] MEDS ORDERED: PENTAMIDINE ISETHIONATE IVPB SCH (15:22)
[2018-01-07 15:50] LABS: PLATELET ESTIMATE SLT INCREASE
--- NOTE | 2018-01-07 17:54 | PN ---
Teaching Attending Note Name of Resident: Nino Holcomb ATTENDING PHYSICIAN STATEMENT I saw and evaluated the patient. I reviewed the resident's note and discussed the case with the resident. I agree with the resident's findings and plan as documented with exceptions below. SUBJECTIVE: Patient seen and examined. Breathing improved, no new abdominal or urinary complaints. OBJECTIVE: Vital Signs Period Temp Pulse Resp BP Sys/Mirza Pulse Ox Last 24 Hr 97.7 F-98.1 F 67-105 20-20 121-138/78-94 95-95 Intake & Output 01/04/18 01/05/18 01/06/18 01/07/18 23:59 23:59 23:59 23:59 Intake Total 575 1775 1046 Output Total 2 Balance 575 1773 1046 Weight 110 lb 4 oz 110 lb General: sitting in bed in no acute distress Chest: fine scattered rales, exam unchanged Abdomen:soft, NT, ND, no suprapubic or CVA tenderness, positive bowel sounds Extremities: no edema Active Medications Al Hydroxide/Mg Hydroxide (Mylanta Oral Suspension -) 30 ml PO Q6H PRN PRN Reason: DYSPEPSIA Last Admin: 01/06/18 12:55 Dose: 30 ml Enoxaparin Sodium (Lovenox -) 40 mg SQ DAILY SHAD Last Admin: 01/07/18 10:31 Dose: 40 mg Ceftriaxone Sodium 1 gm/ (Dextrose) 50 mls @ 100 mls/hr IVPB DAILY [facility]; Protocol Last Admin: 01/07/18 11:35 Dose: 100 mls/hr Pentamidine Isethionate 200 mg (/ Dextrose) 250 mls @ 250 mls/hr IVPB Q24H [facility] Sodium Chloride (Normal Saline -) 1,000 mls @ 100 mls/hr IV ASDIR [facility] Megestrol Acetate (Megace -) 40 mg PO DAILY [facility] Last Admin: 01/07/18 10:31 Dose: 40 mg Prednisone (Deltasone -) 40 mg PO BID SHAD Last Admin: 01/07/18 10:31 Dose: 40 mg Tamsulosin HCl (Flomax -) 0.4 mg PO DAILY@0830 [facility] Laboratory Results - last 24 hr 01/04/18 01/07/18 01/07/18 16:25 07:00 07:00 WBC 5.4 RBC 3.81 L Hgb 11.2 L Hct 33.2 L MCV 87.2 MCH 29.4 MCHC 33.7 RDW 13.4 Plt Count 383 MPV 8.3 Absolute Neuts (auto) 4.6 Neutrophils % 84.7 H Neutrophils % (Manual) 81.7 Band Neutrophils % 1.1 Lymphocytes % 12.2 Lymphocytes % (Manual) 10.8 Monocytes % 2.2 L Monocytes % (Manual) 4 Eosinophils % 0.0 D Eosinophils % (Manual) 0.0 Basophils % 0.9 Basophils % (Manual) 2.1 H D Myelocytes % (Man) 0 Promyelocytes % (Man) 0 Blast Cells % (Manual) 0 Nucleated RBC % 0 Metamyelocytes 0 Platelet Estimate Slt increase Sodium 134 L Potassium 4.6 Chloride 98 Carbon Dioxide 25 Anion Gap 10 BUN 15 Creatinine 0.7 Creat Clearance w eGFR > 60 Random Glucose 92 Calcium 9.0 Total Bilirubin 0.3 AST 40 H ALT 35 Alkaline Phosphatase 65 Total Protein 7.3 Albumin 2.4 L HIV-1 Antibody Positive H HIV-2 Antibody Negative HIV 1&2 Ag/Ab, 4th Gen Reactive H HIV Note Hiv-1 positive Microbiology 01/04/18 16:21 Blood - Peripheral Venous Blood Culture - Preliminary NO GROWTH OBTAINED AFTER 72 HOURS, INCUBATION TO CONTINUE FOR 2 DAYS. 01/04/18 16:21 Blood - Peripheral Venous Blood Culture - Preliminary NO GROWTH OBTAINED AFTER 72 HOURS, INCUBATION TO CONTINUE FOR 2 DAYS. 01/04/18 18:58 Urine - Urine Clean Catch Urine Culture - Final Klebsiella Pneumoniae 01/06/18 01:52 Urine For Antigen Detection Legionella Antigen - Final 01/06/18 01:52 Urine For Antigen Detection Streptococcus pneumoniae Antigen (M - Final 01/05/18 09:13 Nasopharyngeal Swab Influenza Types A,B Antigen - Final 01/05/18 09:13 Nasopharyngeal Swab - Final Repeat CXR overall unchanged ASSESSMENT AND PLAN: 67 yom with PMHx of reported G6PD deficiency, HIV (not on meds reportedly for years as was taken off), comes with progressive dyspnea for 2 weeks and weakness. -Acute hypoxic respiratory distress -Interstitial PNA, suspected PCP PNA -HIV not on meds, likely AIDS -Reported G6PD deficiency -Malnutrition -Lower uncomplicated Klebsiella UTI -Acute vs chronic urinary retention Plan: ID/pulmonary input noted. Ceftriaxone day 4. Pentamidine day 1 (after 3 days of atovaquone). Azithromycin d/melony. Urine PNA studies/Flu swab neg. Unable to induce sputum. FOllow up with pulmonary for possible Bronchoscopy with BAL. Follow up CD4 counts. CT chest noted. Continue prednisone. nebs prn. Follow up urine cx. Renal/bladder US noted. Evidence of urinary retention. Start flomax. Bladder scan q6h, hernández if persistent retention. . Follow up with ID for HAART treatment. Nutrition consult. DVTPPX lovenox Dispo pending clinical improvement. Plan discussed with patient in detail, all questions answered.
[2018-01-08 02:59] VITALS: TEMP 98.6
[2018-01-08] MEDS: SODIUM CHLORIDE 1,000 ML IV SCH (03:49)
[2018-01-08 06:51] VITALS: BP 133/85; PULSE 63
[2018-01-08 08:18] LABS: HEMATOCRIT 31.4 % (35.4-49); HEMOGLOBIN 10.7 GM/dL (11.7-16.9); MCH 29.4 pg (25.7-33.7); MCHC 34.1 g/dl (32.0-35.9); MEAN CELL VOLUME 86.3 fl (80-96); MEAN PLT VOLUME 8.3 fl (7.5-11.1); PLATELET COUNT 372 K/MM3 (134-434); RBC 3.64 M/mm3 (4.00-5.60); RDW 13.5 % (11.9-15.9); WHITE BLOOD COUNT 4.3 K/mm3 (4.0-10.0)
[2018-01-08] MEDS ORDERED: TAMSULOSIN HCL 0.4 MG CAP.ER.24H (FP) PO SCH (08:30)
[2018-01-08 08:33] LABS: ANION GAP 10 MMOL/L (8-16); BLOOD UREA NITROGEN 17 mg/dL (7-18); CALCIUM 9.1 mg/dL (8.5-10.1); CHLORIDE 95 mmol/L (98-107); CO2 25 mmol/L (21-32); CREATININE 0.6 mg/dL (0.55-1.3); GLUCOSE,RANDOM 100 mg/dL (74-106); POTASSIUM 4.4 mmol/L (3.5-5.1); SODIUM 130 mmol/L (136-145)
--- NOTE | 2018-01-08 08:46 | PN ---
Physical Exam: SUBJECTIVE: Patient seen and examined this AM. He still says he is doing better than yesterday. Overnight events noted, pt retaining urine on bladder scan though denies any urinary retention or pain. Pt does not want hernández as he has no urinary complaints at this time. He says they put in the catheter and couldnt get anything out. Pt also asking when he can return home. OBJECTIVE: Vital Signs Period Temp Pulse Resp BP Sys/Mirza Pulse Ox Last 24 Hr 98 F-98.6 F 63-105 18-20 124-138/80-94 95-95 GENERAL: A&O, no acute distress, pt cachectic on appearance HEAD: Normocephalic, atraumatic. EYES: PERRL, no scleral icterus EARS, NOSE, THROAT: oropharynx clear without exudates. Moist mucous membranes. NECK: supple without lymphadenopathy LUNGS: CTA b/l without any crackles or wheezes HEART: Regular rate and rhythm, normal S1 and S2 without murmur ABDOMEN: Soft, concave, nontender to palpation, normoactive bowel sounds MUSCULOSKELETAL: No bony deformities or tenderness. EXTREMITIES: 2+ pulses, warm, well-perfused. No peripheral edema. NEUROLOGICAL: Cranial nerves II-XII grossly intact. Normal speech. PSYCHIATRIC: Cooperative. Good eye contact. Appropriate mood and affect. Laboratory Results - last 24 hr 01/05/18 01/07/18 01/07/18 19:00 07:00 07:00 WBC RBC Hgb Hct MCV MCH MCHC RDW Plt Count MPV Neutrophils % (Manual) 81.7 Band Neutrophils % 1.1 Lymphocytes % (Manual) 10.8 Monocytes % (Manual) 4 Eosinophils % (Manual) 0.0 Basophils % (Manual) 2.1 H D Myelocytes % (Man) 0 Promyelocytes % (Man) 0 Blast Cells % (Manual) 0 Nucleated RBC % 0 Metamyelocytes 0 Platelet Estimate Slt increase Sodium 134 L Potassium 4.6 Chloride 98 Carbon Dioxide 25 Anion Gap 10 BUN 15 Creatinine 0.7 Creat Clearance w eGFR > 60 Random Glucose 92 Calcium 9.0 Total Bilirubin 0.3 AST 40 H ALT 35 Alkaline Phosphatase 65 Total Protein 7.3 Albumin 2.4 L TB Test (QFT) Nil 0.03 TB Test (QFT) Mitogen 0.46 TB Test TB - Nil 0.00 TB Test (QFT) Indeterminate TB Positive Criteria TB Test (QFT) Interp 01/08/18 01/08/18 07:00 07:00 WBC 4.3 RBC 3.64 L Hgb 10.7 L Hct 31.4 L MCV 86.3 MCH 29.4 MCHC 34.1 RDW 13.5 Plt Count 372 MPV 8.3 Neutrophils % (Manual) Band Neutrophils % Lymphocytes % (Manual) Monocytes % (Manual) Eosinophils % (Manual) Basophils % (Manual) Myelocytes % (Man) Promyelocytes % (Man) Blast Cells % (Manual) Nucleated RBC % Metamyelocytes Platelet Estimate Sodium 130 L Potassium 4.4 Chloride 95 L Carbon Dioxide 25 Anion Gap 10 BUN 17 Creatinine 0.6 Creat Clearance w eGFR > 60 Random Glucose 100 Calcium 9.1 Total Bilirubin AST ALT Alkaline Phosphatase Total Protein Albumin TB Test (QFT) Nil TB Test (QFT) Mitogen TB Test TB - Nil TB Test (QFT) TB Positive Criteria TB Test (QFT) Interp Active Medications Generic Name Dose Route Start Last Admin Trade Name Freq PRN Reason Stop Dose Admin Al Hydroxide/Mg Hydroxide 30 ml 01/05/18 20:30 01/06/18 12:55 Mylanta Oral Suspension - PO 30 ml Q6H PRN Administration DYSPEPSIA Enoxaparin Sodium 40 mg 01/05/18 10:00 01/07/18 10:31 Lovenox - SQ 40 mg DAILY SHAD Administration Ceftriaxone Sodium 1 gm/ 50 mls @ 100 mls/hr 01/05/18 17:15 01/07/18 11:35 Dextrose IVPB 100 mls/hr DAILY SHAD Administration Protocol Pentamidine Isethionate 200 mg 250 mls @ 250 mls/hr 01/07/18 15:22 01/07/18 17:51 / Dextrose IVPB 250 mls/hr Q24H SHAD Administration Sodium Chloride 1,000 mls @ 100 mls/hr 01/07/18 16:45 01/08/18 03:49 Normal Saline - IV 100 mls/hr ASDIR SHAD Administration Megestrol Acetate 40 mg 01/05/18 10:00 01/07/18 10:31 Megace - PO 40 mg DAILY SHAD Administration Prednisone 40 mg 01/05/18 00:45 01/07/18 21:21 Deltasone - PO 40 mg BID SHAD Administration Tamsulosin HCl 0.4 mg 01/08/18 08:30 Flomax - PO DAILY@0830 [facility] ASSESSMENT/PLAN:
[2018-01-08] MEDS ORDERED: DEXTROSE 5%-WATER - 50 ML IVPB ONE (09:02)
[2018-01-08] MEDS ORDERED: cefTRIAXone SODIUM 1 GM VIAL ONE (09:02)
--- NOTE | 2018-01-08 09:42 | PN ---
Teaching Attending Note Name of Resident: Nino Holcomb ATTENDING PHYSICIAN STATEMENT I saw and evaluated the patient. I reviewed the resident's note and discussed the case with the resident. I agree with the resident's findings and plan as documented with exceptions below. SUBJECTIVE: Patient seen and examined. breathing continues to improve. No new abdominal or urinary complaints. OBJECTIVE: Vital Signs Period Temp Pulse Resp BP Sys/Mirza Pulse Ox Last 24 Hr 98.1 F-98.6 F 63-72 18-20 128-138/80-94 95 Intake & Output 01/05/18 01/06/18 01/07/18 01/08/18 23:59 23:59 23:59 23:59 Intake Total 575 1775 1296 1446 Output Total 2 Balance 575 1773 1296 1446 Weight 110 lb General; sitting in bed in no acute distress Chest: fine bilateral rales, improved exam and air entry Abdomen;Soft, nT, nD, no suprapubic or CVA tenderness, positive bowel sounds Extremities; no edema Active Medications Al Hydroxide/Mg Hydroxide (Mylanta Oral Suspension -) 30 ml PO Q6H PRN PRN Reason: DYSPEPSIA Last Admin: 01/06/18 12:55 Dose: 30 ml Enoxaparin Sodium (Lovenox -) 40 mg SQ DAILY [facility] Last Admin: 01/07/18 10:31 Dose: 40 mg Ceftriaxone Sodium 1 gm/ (Dextrose) 50 mls @ 100 mls/hr IVPB DAILY [facility]; Protocol Last Admin: 01/07/18 11:35 Dose: 100 mls/hr Pentamidine Isethionate 200 mg (/ Dextrose) 250 mls @ 250 mls/hr IVPB Q24H SHAD Last Admin: 01/07/18 17:51 Dose: 250 mls/hr Sodium Chloride (Normal Saline -) 1,000 mls @ 100 mls/hr IV ASDIR SHAD Last Admin: 01/08/18 03:49 Dose: 100 mls/hr Megestrol Acetate (Megace -) 40 mg PO DAILY [facility] Last Admin: 01/07/18 10:31 Dose: 40 mg Prednisone (Deltasone -) 40 mg PO BID [facility] Last Admin: 01/07/18 21:21 Dose: 40 mg Tamsulosin HCl (Flomax -) 0.4 mg PO DAILY@0830 [facility] Laboratory Results - last 24 hr 01/05/18 01/07/18 01/08/18 19:00 07:00 07:00 WBC RBC Hgb Hct MCV MCH MCHC RDW Plt Count MPV Neutrophils % (Manual) 81.7 Band Neutrophils % 1.1 Lymphocytes % (Manual) 10.8 Monocytes % (Manual) 4 Eosinophils % (Manual) 0.0 Basophils % (Manual) 2.1 H D Myelocytes % (Man) 0 Promyelocytes % (Man) 0 Blast Cells % (Manual) 0 Nucleated RBC % 0 Metamyelocytes 0 Platelet Estimate Slt increase Sodium 130 L Potassium 4.4 Chloride 95 L Carbon Dioxide 25 Anion Gap 10 BUN 17 Creatinine 0.6 Creat Clearance w eGFR > 60 Random Glucose 100 Calcium 9.1 TB Test (QFT) Nil 0.03 TB Test (QFT) Mitogen 0.46 TB Test TB - Nil 0.00 TB Test (QFT) Indeterminate TB Positive Criteria TB Test (QFT) Inter 01/08/18 07:00 WBC 4.3 RBC 3.64 L Hgb 10.7 L Hct 31.4 L MCV 86.3 MCH 29.4 MCHC 34.1 RDW 13.5 Plt Count 372 MPV 8.3 Neutrophils % (Manual) Band Neutrophils % Lymphocytes % (Manual) Monocytes % (Manual) Eosinophils % (Manual) Basophils % (Manual) Myelocytes % (Man) Promyelocytes % (Man) Blast Cells % (Manual) Nucleated RBC % Metamyelocytes Platelet Estimate Sodium Potassium Chloride Carbon Dioxide Anion Gap BUN Creatinine Creat Clearance w eGFR Random Glucose Calcium TB Test (QFT) Nil TB Test (QFT) Mitogen TB Test TB - Nil TB Test (QFT) TB Positive Criteria TB Test (QFT) [facility] Microbiology 01/04/18 16:21 Blood - Peripheral Venous Blood Culture - Preliminary NO GROWTH OBTAINED AFTER 72 HOURS, INCUBATION TO CONTINUE FOR 2 DAYS. 01/04/18 16:21 Blood - Peripheral Venous Blood Culture - Preliminary NO GROWTH OBTAINED AFTER 72 HOURS, INCUBATION TO CONTINUE FOR 2 DAYS. 01/04/18 18:58 Urine - Urine Clean Catch Urine Culture - Final Klebsiella Pneumoniae 01/06/18 01:52 Urine For Antigen Detection Legionella Antigen - Final 01/06/18 01:52 Urine For Antigen Detection Streptococcus pneumoniae Antigen (M - Final 01/05/18 09:13 Nasopharyngeal Swab Influenza Types A,B Antigen - Final 01/05/18 09:13 Nasopharyngeal Swab - Final ASSESSMENT AND PLAN: 67 yom with PMHx of reported G6PD deficiency, HIV (not on meds reportedly for years as was taken off), comes with progressive dyspnea for 2 weeks and weakness. -Acute hypoxic respiratory distress -Interstitial PNA, suspected PCP PNA -HIV not on meds, likely AIDS -Reported G6PD deficiency -Malnutrition -Lower uncomplicated Klebsiella UTI -Acute vs chronic urinary retention Plan: ID/pulmonary input noted. Ceftriaxone day 5. Pentamidine day 2 (after 3 days of atovaquone). Azithromycin d/melony. Aggressive hydration while on abx. Urine PNA studies/Flu swab neg. Unable to induce sputum. FOllow up with pulmonary for possible Bronchoscopy with BAL. Follow up CD4 counts. CT chest noted. Continue prednisone. nebs prn. Follow up urine cx. Renal/bladder US noted. Evidence of urinary retention. FLomax started. Discuss with patient for hernández insertion, will address voiding trial in 48 hours and urology input if fails. Follow up with ID for HAART treatment. Nutrition consult. DVTPPX lovenox Dispo pending clinical improvement. Plan discussed with patient in detail, all questions answered.
[2018-01-08] MEDS: predniSONE 20 MG TABLET (UD) PO SCH (09:58)
[2018-01-08] MEDS: MEGESTROL ACETATE 40 MG TABLET PO SCH (09:59)
[2018-01-08] MEDS: ENOXAPARIN NA (PORCINE) 40 MG/0.4 ML DISP.SYRIN SQ SCH (09:59)
[2018-01-08] MEDS: CEFTRIAXONE 1 GM in DEXTROSE 5%-WATER - 50 ML IVPB SCH (09:59)
--- NOTE | 2018-01-08 10:27 | PN ---
Progress Note (short form) - Note Progress Note: Notified by Dr. Holcomb, patient wants to leave. Patient seen, discussed in detail about current findings of HIV, likely AIDS and life threatening nature of current infection, suspected serious pneumonia and increased risk of worsening infection, breathing failure and . Patient relays full understanding of the risks including worsening infection/ pneumonia, breathing failure and and able to repeat risks back to me. "I'll take my chances". Offered discussion with infectious disease specialist and prescribing antibiotics and steroids per Infectious disease recommendation though explained that may not be optimal treatment. Patient declined to wait for discussion with infectious disease store consultant and declined any scripts at this point. Stated he plans to follow up with his doctor Dr. Guevara at [facility] tomorrow or go to [facility] ER if unable to see him over the weekend. Strongly urged to seek care [facility] for intravenous antibiotics, steroids and further treatment. [facility] information provided to the patient. Entire discussion witnessed by Dr. Holcomb. Visit type - Emergency Visit Emergency Visit: Yes ED Registration Date: 01/04/18 Care time: The patient presented to the Emergency Department on the above date and was hospitalized for further evaluation of their emergent condition. - New Patient This patient is new to me today: No - Critical Care Critical Care patient: No - Discharge Referral Referred to [facility] No
--- NOTE | 2018-01-08 15:12 | DS ---
Physical Exam: SUBJECTIVE: Patient seen and examined this AM. He still says he is doing better than yesterday. Overnight events noted, pt retaining urine on bladder scan though denies any urinary retention or pain. Pt does not want hernández as he has no urinary complaints at this time. He says they put in the catheter and couldnt get anything out. Pt also asking when he can return home. Called later in the morning and patient adamantly refusing to stay any longer in the hospital and wanted to sign out AMA. Discussed with pt the importance for continued abx and treatment. He expressed that he understood the risks and that he wanted to leave. He said that he would follow up with his primary care physician at [facility] tomorrow or wednesday or would go to another ER. OBJECTIVE: Vital Signs Period Temp Pulse Resp BP Sys/Mirza Pulse Ox Last 24 Hr 98.1 F-98.6 F 63-72 18-20 128-138/80-94 95-96 PHYSICAL EXAM GENERAL: A&O, no acute distress, pt cachectic on appearance HEAD: Normocephalic, atraumatic. EYES: PERRL, no scleral icterus EARS, NOSE, THROAT: oropharynx clear without exudates. Moist mucous membranes. NECK: supple without lymphadenopathy LUNGS: CTA b/l without any crackles or wheezes HEART: Regular rate and rhythm, normal S1 and S2 without murmur ABDOMEN: Soft, concave, nontender to palpation, normoactive bowel sounds MUSCULOSKELETAL: No bony deformities or tenderness. EXTREMITIES: 2+ pulses, warm, well-perfused. No peripheral edema. NEUROLOGICAL: Cranial nerves II-XII grossly intact. Normal speech. PSYCHIATRIC: Cooperative. Good eye contact. Appropriate mood and affect. LABS Laboratory Results - last 24 hr 01/05/18 01/07/18 01/08/18 19:00 07:00 07:00 WBC RBC Hgb Hct MCV MCH MCHC RDW Plt Count MPV Platelet Estimate Slt increase Sodium 130 L Potassium 4.4 Chloride 95 L Carbon Dioxide 25 Anion Gap 10 BUN 17 Creatinine 0.6 Creat Clearance w eGFR > 60 Random Glucose 100 Calcium 9.1 TB Test (QFT) Nil 0.03 TB Test (QFT) Mitogen 0.46 TB Test TB - Nil 0.00 TB Test (QFT) Indeterminate TB Positive Criteria TB Test (QFT) Interp 01/08/18 07:00 WBC 4.3 RBC 3.64 L Hgb 10.7 L Hct 31.4 L MCV 86.3 MCH 29.4 MCHC 34.1 RDW 13.5 Plt Count 372 MPV 8.3 Platelet Estimate Sodium Potassium Chloride Carbon Dioxide Anion Gap BUN Creatinine Creat Clearance w eGFR Random Glucose Calcium TB Test (QFT) Nil TB Test (QFT) Mitogen TB Test TB - Nil TB Test (QFT) TB Positive Criteria TB Test (QFT) Interp IMAGING: CXR 01/04: Findings suggestive of pneumonia, mainly interstitial pneumonitis in the mid and lower lung. CT Chest: Moderate COPD, diffuse groundglass and interstitial infiltrates throughout both lungs, lower lobe predominant. U/S Renal/Bladder: Echogenic kidneys suspicious for medical renal disease, no evidence of hydronephrosis, large post void residual volume in the bladder, 492 cc HOSPITAL COURSE: Date of Admission:01/04/18 Date of Discharge: 01/08/18 67 yo male with PMH of G6PD def and HIV (no longer on HAART) admitted with one week of SOB and 3 months unintentional weight loss. He was found to have an atypical pneumonia likely PCP. HIV screen was positive and CD4 counts were ordered and still pending upon discharge. He was seen by ID who recommended Ceftriaxone 1gm IV Daily, Atovaquone which was replaced with Pentamidine 200 mg IV Daily. Pt was adequately fluid resuscitated and hydrated. He was noted to have a large post void residual volume as above and bladder scans were performed. He denied any urinary complaints, though UA was noted with 1+ LE, 20- 40 WBCs, and urine C/S grew Klebsiella which was mostly sensitive. It was recommended that the pt receive a Hernández for the urinary retention which he refused. Pt then refused to stay in the hospital any longer. He refused any further IV abx or any outpatient therapy. He said that he would follow up with his primary doctor at [facility]. The risks were explained to the patient including from severe infection. He was competent to make his own decisions and expressed understanding of the situation and the risks. He signed out AMA. He was given a printout with information for the [facility] including the phone number and highly recommended to make an appointment and follow up for treatment as an outpatient of his HIV. Minutes to complete discharge: 50 Discharge Summary Reason For Visit: PCP PNEUMONIA - Instructions Disposition: AGAINST MEDICAL ADVICE - Home Medications Comprehensive Discharge Medication List: Ambulatory Orders NK [No Known Home Medication] 05/20/15 This patient is new to me today: No Emergency Visit: Yes ED Registration Date: 01/04/18 Care time: The patient presented to the Emergency Department on the above date and was hospitalized for further evaluation of their emergent condition. Critical Care patient: No - Discharge Referral Referred to [facility] Med P.C.: No
== END 2018-01-08 11:48 | disposition left against medical advice (07) | DRG 193 ==
LOC: FER 16:07 → J6S 20:17
PROVIDERS: ADMIT Internal Medicine; ATTEND Hospitalist
DX: J18.9 Pneumonia, unspecified organism (principal); E43 Unspecified severe protein-calorie malnutrition; J96.01 Acute respiratory failure with hypoxia; E74.01 von Gierke disease; E87.1 Hypo-osmolality and hyponatremia; R64 Cachexia; Z68.1 Body mass index [BMI] 19.9 or less, adult; N39.0 Urinary tract infection, site not specified; B96.1 Klebsiella pneumoniae [K. pneumoniae] as the cause of diseases classified elsewhere; R33.9 Retention of urine, unspecified; Z21 Asymptomatic human immunodeficiency virus [HIV] infection status; J84.89 Other specified interstitial pulmonary diseases; J44.9 Chronic obstructive pulmonary disease, unspecified
CPT/HCPCS: 36415; 36600; 71046-TC-FY; 71250-TC; 76775-TC; 76856-TC; 80048; 80053; 81003; 81015; 82375; 82550; 82803; 83050; 83605; 83615; 83735; 83880; 84100; 84484; 85025; 85027; 85610; 85730; 86359; 86360; 86480; 87040; 87086; 87186; 87389; 87804; 87899; 93005; 99285-25; J7030; J8999